=== PATIENT | female | born 1940 | race African-American/Black ===

== ENCOUNTER 2017-01-05 19:39 | Emergency (ER) | payer MEDICARE, MEDICAID ==
[~2017-01-05] VITALS: Ht 162.6 cm; Wt 94.8 kg
[~2017-01-05 19:39] MED LIST: ACET-704 PO; AMLO10TA4 PO; ATEN-57 PO; ATOR40TA PO; ATORVASTATIN CA80 MG PO; CALC200T23 PO; CARV3.122 PO; CHOL10003 PO; CLON1PAT11 TD; CYCL5TAB PO; DARB100D SQ; DICL100G7 TP; DOXA4TAB3 PO; ESOM40CA25 PO; FERR-26 PO; FEXO180T81 PO; FURO-68 PO; HYDR100T24 PO; LOSA100T6 PO; METO5TAB4 PO; MOME13HF IH; MONT10TA9 PO; NYST15OI TP; POLY17PO5 PO; PROAIR HFA8.5 GM IH; TIZA2TAB PO; TOLT2TAB2 PO
[2017-01-05 22:08] LABS: BASO % 1 % (0-3); EOS % 5 % (0-3); HEMATOCRIT 26.3 % (36.0-47.0); HEMOGLOBIN 8.3 g/dL (12.0-15.5); LYMPH # 1.8 x10^3/uL (1.0-4.8); LYMPH % 21 % (24-48); MEAN CORPUSCULAR HEMOGLOBIN 31 pg (25-35); MEAN CORPUSCULAR HGB CONC 32 g/dL (31-37); MEAN CORPUSCULAR VOLUME 99 fL (79-100); MONO % 6 % (0-9); NEUT % 67 % (31-73); PLATELET COUNT 244 x10^3/uL (140-400); RED BLOOD COUNT 2.67 x10^6/uL (3.50-5.40); RED CELL DISTRIBUTION WIDTH 14.5 % (11.5-14.5); WHITE BLOOD COUNT 8.4 x10^3/uL (4.0-11.0)
[2017-01-05 22:19] LABS: CREATININE 3.9 mg/dL (0.6-1.0); GFR 13.5; POTASSIUM 5.2 mmol/L (3.5-5.1)
[2017-01-05 22:42] VITALS: BP 177/69
[2017-01-05] MEDS ORDERED: HYDR-971 PO (23:00)
--- NOTE | 2017-01-05 23:00 | PHYS DOC ---
Past Medical History Past Medical History: Arthritis, High Cholesterol, Hypertension Additional Past Medical Histor: KIDNEY DISEASE Past Surgical History: Hysterectomy Alcohol Use: Occasionally Drug Use: None Adult General Chief Complaint Chief Complaint: LOWER EXTREMITY SWELLING [facility] HPI Patient is a 76 year old female who presents with primary complaint of bilateral knee swelling and pain. Patient states that she has history of arthritis. Patient has been having worsening pain over the past 2 weeks. Patient states that she has an appointment with her orthopedic doctor, Dr. Sanchez, a [facility] in 8 days but stated that due to worsening symptoms she could not wait until her appointment. Patient is currently taking Tylenol 3 for her symptoms with no relief. Patient rates her pain as 8 out of 10 when walking. Patient states that the symptoms improve with rest. Patient has history of chronic kidney disease and anemia. The patient stated that she wanted to make sure she was not having any problems from her condition that could be causing her swelling. Patient has not had any exertional dyspnea, orthopnea, or chest pain associated with her symptoms. Review of Systems Review of Systems Constitutional: Denies fever or chills [] Eyes: Denies change in visual acuity, redness, or eye pain [] HENT: Denies nasal congestion or sore throat [] Respiratory: Denies cough or shortness of breath [] Cardiovascular: No additional information not addressed in HPI [] GI: Denies abdominal pain, nausea, vomiting, bloody stools or diarrhea [] : Denies dysuria or hematuria [] Musculoskeletal: Knee swelling bilaterally [] Integument: Denies rash or skin lesions [] Neurologic: Denies headache, focal weakness or sensory changes [] Allergies Allergies Allergies Coded Allergies Type Severity Reaction Last Updated Verified carvedilol Allergy Intermediate 01/05/15 Yes NSAIDS (Non-Steroidal Anti-Inflamma Allergy Unknown 10/04/16 Yes Physical Exam Physical Exam Constitutional: Alert, afebrile, no acute distress. [] HENT: Normocephalic, atraumatic, bilateral external ears normal, oropharynx moist, no oral exudates, nose normal. [] Eyes: PERRLA, EOMI, conjunctiva normal, no discharge. [] Neck: Normal range of motion, no tenderness, supple, no stridor. [] Cardiovascular:Heart rate regular rhythm, no murmur [] Lungs & Thorax: Bilateral breath sounds clear to auscultation [] Abdomen: Bowel sounds normal, soft, no tenderness, no masses, no pulsatile masses. [] Skin: Warm, dry, no erythema, no rash. [] Back: No tenderness, no CVA tenderness. [] Extremities: Mild to moderate soft tissue swelling along inferior joint space of bilateral knees, trace pedal edema bilaterally, no cyanosis, no clubbing, ROM intact. [] Neurologic: Alert and oriented X 3, normal motor function, normal sensory function, no focal deficits noted. [] Current Patient Data Vital Signs Vital Signs Date Time Temp Pulse Resp B/P Pulse Ox O2 Delivery O2 Flow Rate FiO2 01/05/17 22:42 46 20 177/69 93 Room Air 01/05/17 20:13 98.3 98.3 Lab Values Laboratory Tests Test 01/05/17 20:30 White Blood Count 8.4x10^3/uL (4.0-11.0) Red Blood Count 2.67x10^6/uL (3.50-5.40) L Hemoglobin 8.3g/dL (12.0-15.5) L Hematocrit 26.3% (36.0-47.0) L Mean Corpuscular Volume 99fL (79-100) Mean Corpuscular Hemoglobin 31pg (25-35) Mean Corpuscular Hemoglobin Concent 32g/dL (31-37) Red Cell Distribution Width 14.5% (11.5-14.5) Platelet Count 244x10^3/uL (140-400) Neutrophils (%) (Auto) 67% (31-73) Lymphocytes (%) (Auto) 21% (24-48) L Monocytes (%) (Auto) 6% (0-9) Eosinophils (%) (Auto) 5% (0-3) H Basophils (%) (Auto) 1% (0-3) Neutrophils # (Auto) 5.6x10^3uL (1.8-7.7) Lymphocytes # (Auto) 1.8x10^3/uL (1.0-4.8) Monocytes # (Auto) 0.5x10^3/uL (0.0-1.1) Eosinophils # (Auto) 0.4x10^3/uL (0.0-0.7) Basophils # (Auto) 0.0x10^3/uL (0.0-0.2) Sodium Level 147mmol/L (136-145) H Potassium Level 5.2mmol/L (3.5-5.1) H Chloride Level 108mmol/L (98-107) H Carbon Dioxide Level 29mmol/L (21-32) Anion Gap 10 (6-14) Blood Urea Nitrogen 92mg/dL (7-20) H Creatinine 3.9mg/dL (0.6-1.0) H Estimated GFR (Cockcroft-Gault) 13.5 Glucose Level 107mg/dL (70-99) H Calcium Level 9.0mg/dL (8.5-10.1) Laboratory Tests 01/05/17 20:30 Laboratory Tests 01/05/17 20:30 EKG EKG Interpreted by me: Heart rate 47, sinus bradycardia, normal intervals, normal axis, no acute ST/T-wave abnormalities present Radiology/Procedures Radiology/Procedures Not performed [] Course & Med Decision Making Course & Med Decision Making Pertinent Labs and Imaging studies reviewed. (See chart for details) The patient's lab work shows her blood counts and her kidney function to be consistent with her previous testing. The patient's worsening swelling in her lower extremities secondary to inflammation from arthritis. The patient was provided with a prescription for [place] and advised to discontinue use of Tylenol 3 while taking [place]. Advised to keep appointment with Dr. Sanchez and also advised to follow-up with primary doctor in the next 2-3 days. Advised return emergency department for any worsening symptoms. Patient voiced understanding and in agreement with treatment plan. Dragon Disclaimer Dragon Disclaimer This electronic medical record was generated, in whole or in part, using a voice recognition dictation system. Departure Departure Impression: Primary Impression: Arthritis Additional Impressions: Chronic renal failure Chronic anemia Disposition: 01 HOME, SELF-CARE Condition: STABLE Referrals: LENNIE CLAYTON (PCP) Patient Instructions: Arthritis, Degenerative-Brief Additional Instructions: Follow-up with your primary doctor in the next 2-3 days. Return to the emergency department for any worsening symptoms. Scripts Hydrocodone/Apap 5-325 ([place] 5-325 Tablet)1 Each Tablet1 Tab PO Q6HRS PRN PAIN #20 TAB Prov:STACY RICHMOND MD 01/05/17 Problem Qualifiers Additional Impressions: Chronic renal failure Chronic kidney disease stage: stage 4 (severe) Qualified Code: N18.4 - Chronic kidney disease, stage 4 (severe) STACY RICHMOND MD Jan 05, 2017 23:00
--- NOTE | 2017-01-06 06:11 | EKG ---
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 POSSIBLY ABNORMAL ECG RI6.01 Compared to ECG 06/05/2016 19:35:33 No significant changes Electronically Signed On 01-22-2017 9:48:30 FINGERPRINT CLASSIFIER by Vince Cedillo
== END 2017-01-05 23:25 | disposition home or self-care (01) ==
LOC: ER 19:39
DX: M17.0 Bilateral primary osteoarthritis of knee (principal); I12.9 Hypertensive chronic kidney disease with stage 1 through stage 4 chronic kidney disease, or unspecified chronic kidney disease; N18.4 Chronic kidney disease, stage 4 (severe); D64.9 Anemia, unspecified; E78.00 Pure hypercholesterolemia, unspecified; Z88.6 Allergy status to analgesic agent; Z88.8 Allergy status to other drugs, medicaments and biological substances
CPT/HCPCS: 36415; 80048; 85027; 93005; 99285-25

== ENCOUNTER 2017-02-02 21:31 | Emergency (ER) | payer MEDICARE, MEDICAID ==
[~2017-02-02] VITALS: Ht 162.6 cm; Wt 94.8 kg
[~2017-02-02 21:31] MED LIST changes: +HYDR-971 PO
[2017-02-02 22:20] LABS: BASO # 0.1 x10^3/uL (0.0-0.2); BASO % 1 % (0-3); EOS % 3 % (0-3); HEMATOCRIT 27.1 % (36.0-47.0); HEMOGLOBIN 8.7 g/dL (12.0-15.5); LYMPH # 1.6 x10^3/uL (1.0-4.8); LYMPH % 19 % (24-48); MEAN CORPUSCULAR HEMOGLOBIN 31 pg (25-35); MEAN CORPUSCULAR HGB CONC 32 g/dL (31-37); MEAN CORPUSCULAR VOLUME 97 fL (79-100); MONO % 7 % (0-9); NEUT % 69 % (31-73); PLATELET COUNT 208 x10^3/uL (140-400); RED CELL DISTRIBUTION WIDTH 14.1 % (11.5-14.5); WHITE BLOOD COUNT 8.1 x10^3/uL (4.0-11.0)
--- NOTE | 2017-02-02 22:27 | RAD ---
PROCEDURE CT head without intravenous contrast. HISTORY Intermittent confusion. TECHNIQUE Axial images are obtained of the head from the skull base through the vertex without IV contrast Exposure: One or more of the following individualized dose reduction techniques were utilized for this examination: 1. Automated exposure control. 2. Adjustment of the mA and/or kV according to patient size. 3. Use of iterative reconstruction technique. COMPARISON CT head January 04, 2015. FINDINGS The ventricles are appropriate in size, shape, and location for the patient's age.No obvious intracranial mass, mass-effect, midline shift, hemorrhage or obvious acute infarction is identified.Basilar cisterns are patent. Small old right cerebellar lacunar infarction is unchanged. Bone windows demonstrate no acute calvarial abnormality.The visualized paranasal sinuses appear clear. IMPRESSION 1. No acute intracranial process. Please note that CT can be relatively insensitive to acute ischemic infarction for up to 24 hours after symptom onset. 2. 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 Electronically signed by: Seamus Monte MD (Feb 02, 2017 22:25:52)
--- NOTE | 2017-02-02 22:32 | PHYS DOC ---
Past Medical History Past Medical History: Arthritis, High Cholesterol, Hypertension Additional Past Medical Histor: KIDNEY DISEASE Past Surgical History: Hysterectomy Alcohol Use: Occasionally Drug Use: None Adult General Chief Complaint Chief Complaint: intermittent confusion with severe hypertension. HPI HPI 77-year-old female presenting to the emergency department today accompanied with her daughter. She reports intermittent confusion that occurred around 1600 today. Here the patient is not confused she is oriented 4. She reports her being more forgetful as well. She denies weakness chest pain shortness of breath abdominal pain nausea vomiting. Location brain duration intermittent. No alleviating factors present. The daughter denies the patient having asymmetric face, slurred speech, unilateral focal motor deficits. Review of systems is negative for chest pain shortness of breath nausea vomiting fevers or chills. All other review of systems is negative unless otherwise noted in history of present illness. Review of Systems Review of Systems SEE ABOVE. Current Medications Current Medications Current Medications Medications (Trade) Dose Ordered Sig/Jerson Start Time Stop Time Status Last Admin Dose Admin Fentanyl Citrate (Fentanyl 2ml Vial) 50 mcg PRN Q30MIN PRN 02/03/17 00:15 02/03/17 00:27 50 MCG Hydralazine HCl (Apresoline) 10 mg PRN Q30MIN PRN 02/02/17 23:30 02/03/17 00:25 10 MG Ondansetron HCl (Zofran) 4 mg PRN Q30MIN PRN 02/03/17 00:15 Allergies Allergies Allergies Coded Allergies Type Severity Reaction Last Updated Verified NSAIDS (Non-Steroidal Anti-Inflamma Allergy Intermediate 02/02/17 Yes carvedilol Allergy Intermediate 01/05/15 Yes Physical Exam Physical Exam Constitutional: Well developed, well nourished, no acute distress, non-toxic appearance. HENT: Normocephalic, atraumatic, bilateral external ears normal, oropharynx moist, no oral exudates, nose normal. [] Eyes: PERRLA, EOMI, conjunctiva normal, no discharge. Neck: Normal range of motion, no tenderness, supple, no stridor. [] Cardiovascular:Heart rate regular rhythm, no murmur Lungs & Thorax: Bilateral breath sounds clear to auscultation [] Abdomen: Bowel sounds normal, soft, no tenderness, no masses, no pulsatile masses. Skin: Warm, dry, no erythema, no rash. [] Back: No tenderness, no CVA tenderness. Extremities: No tenderness, no cyanosis, no clubbing, ROM intact, no edema. [] Neurologic: Mental status: Awake oriented and alert x3 Cranial nerves: Extraocular movements intact, eyebrows mitzy bilaterally smile symmetric, uvula elevation, shoulder shrug intact, tongue protrusion normal Sensation: equal and normal in all extremities Strength: 5/5 in upper and lower extremities bilaterally Psychologic: Affect normal, judgement normal, mood normal. [] Current Patient Data Vital Signs Vital Signs Date Time Temp Pulse Resp B/P Pulse Ox O2 Delivery O2 Flow Rate FiO2 02/03/17 00:59 60 18 170/74 100 Room Air 02/02/17 21:47 98.8 98.8 Lab Values Laboratory Tests Test 02/02/17 21:56 02/02/17 22:10 02/02/17 22:45 02/03/17 01:40 Glucose (Fingerstick) 97mg/dL (70-99) White Blood Count 8.1x10^3/uL (4.0-11.0) Red Blood Count 2.80x10^6/uL (3.50-5.40) L Hemoglobin 8.7g/dL (12.0-15.5) L Hematocrit 27.1% (36.0-47.0) L Mean Corpuscular Volume 97fL (79-100) Mean Corpuscular Hemoglobin 31pg (25-35) Mean Corpuscular Hemoglobin Concent 32g/dL (31-37) Red Cell Distribution Width 14.1% (11.5-14.5) Platelet Count 208x10^3/uL (140-400) Neutrophils (%) (Auto) 69% (31-73) Lymphocytes (%) (Auto) 19% (24-48) L Monocytes (%) (Auto) 7% (0-9) Eosinophils (%) (Auto) 3% (0-3) Basophils (%) (Auto) 1% (0-3) Neutrophils # (Auto) 5.6x10^3uL (1.8-7.7) Lymphocytes # (Auto) 1.6x10^3/uL (1.0-4.8) Monocytes # (Auto) 0.6x10^3/uL (0.0-1.1) Eosinophils # (Auto) 0.3x10^3/uL (0.0-0.7) Basophils # (Auto) 0.1x10^3/uL (0.0-0.2) Sodium Level 146mmol/L (136-145) H Potassium Level 4.7mmol/L (3.5-5.1) Chloride Level 110mmol/L (98-107) H Carbon Dioxide Level 26mmol/L (21-32) Anion Gap 10 (6-14) Blood Urea Nitrogen 55mg/dL (7-20) H Creatinine 3.2mg/dL (0.6-1.0) H Estimated GFR (Cockcroft-Gault) 16.9 Glucose Level 103mg/dL (70-99) H Calcium Level 9.2mg/dL (8.5-10.1) Total Bilirubin 0.3mg/dL (0.2-1.0) Direct Bilirubin 0.1mg/dL (0.0-0.2) Aspartate Amino Transferase (AST) 21U/L (15-37) Alanine Aminotransferase (ALT) 14U/L (14-59) Alkaline Phosphatase 78U/L (46-116) Troponin I Quantitative 0.062ng/mL (0.000-0.055) 0.041ng/mL (0.000-0.055) OE-Gnk-A-Type Natriuretic Peptide 9944pg/mL (0-449) H Total Protein 6.6g/dL (6.4-8.2) Albumin 3.1g/dL (3.4-5.0) L Lipase 75U/L (73-393) Urine Collection Type Unknown Urine Color Yellow Urine Clarity Clear Urine pH 6.0 Urine Specific [place] 1.015 Urine Protein 100mg/dL (NEG-TRACE) Urine Glucose (UA) Negativemg/dL (NEG) Urine Ketones (Stick) Negativemg/dL (NEG) Urine Blood Negative (NEG) Urine Nitrite Negative (NEG) Urine Bilirubin Negative (NEG) Urine Urobilinogen Dipstick 1.0mg/dL (0.2 mg/dL) Urine Leukocyte Esterase Trace (NEG) Urine RBC 0/HPF (0-2) Urine WBC 5-10/HPF (0-4) Urine Squamous Epithelial Cells Mod/LPF Urine Bacteria Many/HPF (0-FEW) Laboratory Tests 02/02/17 22:10 Laboratory Tests 02/02/17 22:10 EKG EKG [] Radiology/Procedures Radiology/Procedures [] Course & Med Decision Making Course & Med Decision Making Pertinent Labs and Imaging studies reviewed. (See chart for details) [] 77-year-old female presenting to the emergency department with intermittent confusion. Vital signs showed significant hypertension. Otherwise unremarkable. Pertinent physical exam findings showed a nonfocal normal neurologic exam. Oriented 4. The patient was provided with IV blood pressure medications in the emergency department. Blood testing obtained. EKG not consistent with ischemia. Head CT shows old cerebellar lacunar infarct. Chest x-ray shows cardiomegaly without obvious infiltrate or pneumothorax similar to previous on January 04, 2015. IV hydralazine used in the emergency department to bring the patient's blood pressure down which was successful. CBC shows mild to moderate anemia. Patient denies dark stools. Urinalysis shows bacteria with squamous epithelial cells negative nitrite and esterase trace. We will give the patient antibiotics for this equivocal urinalysis. Chemistry panel otherwise shows chronic kidney disease. ProBNP elevated along with initial troponin just above the reference range of normal with increased creatinine and decreased GFR. Repeat testing performed after hypertension was controlled shows normal troponin. Patient is feeling much better and subsequent discharged home to follow-up with her primary care physician in our cardiology team in the outpatient setting over the next 2-3 days. Patient and family comfortable with plan. Dragon Disclaimer Dragon Disclaimer This electronic medical record was generated, in whole or in part, using a voice recognition dictation system. Departure Departure Impression: Primary Impression: Intermittent confusion Additional Impression: Hypertensive emergency Disposition: 01 HOME, SELF-CARE Condition: IMPROVED Referrals: LENNIE CLAYTON (PCP) Patient Instructions: Hypertension Additional Instructions: Thank you for allowing us to participate in your care today. Followup with your primary care physician in 3 days for chronic management of your hypertension. I also recommend he follow-up with our cardiology team in 3 days for outpatient evaluation. If you do not have a primary care provider you can ask for a list of our primary care providers. Return to the emergency department you have any new or concerning findings. This should be evaluated by the primary care physician and any necessary consulting services for continued management within a few days after discharge. Return to emergency room if you have any new or concerning symptoms including but not limited to fever, chills, nausea, vomiting, intractable pain, any new rashes, chest pain, shortness of air, uncontrolled bleeding, difficulty breathing, and/or vision loss. Problem Qualifiers TASHA GODWIN MD Feb 02, 2017 22:32
[2017-02-02 22:33] LABS: CALCIUM 9.2 mg/dL (8.5-10.1); CREATININE 3.2 mg/dL (0.6-1.0); GFR 16.9; POTASSIUM 4.7 mmol/L (3.5-5.1)
[2017-02-02 22:39] LABS: ALBUMIN 3.1 g/dL (3.4-5.0); DIRECT BILIRUBIN 0.1 mg/dL (0.0-0.2); TOTAL BILIRUBIN 0.3 mg/dL (0.2-1.0); TOTAL PROTEIN 6.6 g/dL (6.4-8.2)
[2017-02-02 22:53] LABS: BILIRUBIN,URINE NEGATIVE (NEG); GLUCOSE,URINE NEGATIVE (NEG); NITRITE,URINE NEGATIVE (NEG); PROTEIN,URINE 100 mg/dL (NEG-TRACE)
[2017-02-02] MEDS ORDERED: hydrALAZINE 20 MG/ML VIAL. IVP ONE ×2 (23:00→23:30)
[2017-02-02 23:01] LABS: BACTERIA,URINE MANY /HPF (0-FEW); RBC,URINE 0 /HPF (0-2); SQUAMOUS EPITHELIAL CELL,UR MOD /LPF
[2017-02-02] MEDS ORDERED: hydrALAZINE 20 MG/ML VIAL. IVP PRN (23:30)
[2017-02-03] MEDS ORDERED: ONDANSETRON PF 4 MG/2 ML VIAL. IV PRN (00:15)
[2017-02-03] MEDS ORDERED: FENTANYL PF 100 MCG/2 ML VIAL. IV PRN (00:15)
[2017-02-03 00:59] VITALS: BP 170/74
[2017-02-03] MEDS ORDERED: NITR100C62 PO (02:48)
--- NOTE | 2017-02-03 06:51 | EKG ---
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
--- NOTE | 2017-02-03 08:04 | RAD ---
Portable chest, 02/02/2017: History: Altered mental status Comparison is made to a study from 01/04/2015. The heart is moderately enlarged. There is tortuosity and calcific plaquing of the thoracic aorta. The pulmonary vascularity is normal. There is minimal linear atelectasis or scarring laterally in the left midlung. The right lung is clear. There is no evidence of pleural fluid. Degenerative changes are present in the spine and at both shoulders. IMPRESSION: 1. Cardiomegaly and aortic atherosclerosis. 2. Mild linear atelectasis and/or scarring on the left.
== END 2017-02-03 02:58 | disposition home or self-care (01) ==
LOC: ER 21:31
DX: R41.0 Disorientation, unspecified (principal); I10 Essential (primary) hypertension; M19.90 Unspecified osteoarthritis, unspecified site; E78.00 Pure hypercholesterolemia, unspecified; Z90.710 Acquired absence of both cervix and uterus; Z86.73 Personal history of transient ischemic attack (TIA), and cerebral infarction without residual deficits; Z88.8 Allergy status to other drugs, medicaments and biological substances
CPT/HCPCS: 36415; 70450; 71010; 80048; 80076; 81001; 82947; 83690; 83880; 84484; 85027; 87086; 93005; 96374; 96375; 96376; 99285; J0360; J3010

== ENCOUNTER 2017-09-05 15:48 | Inpatient (IN) | payer MEDICARE, MEDICAID ==
[~2017-09-05] VITALS: Ht 162.6 cm; Wt 92.8 kg
[~2017-09-05 15:48] MED LIST changes: +DICL100G18 TP; -DICL100G7 TP; +NITR100C62 PO; +POLY17PO29 PO; -POLY17PO5 PO
--- NOTE | 2017-09-05 16:32 | PHYS DOC ---
Past Medical History Past Medical History: Arthritis, High Cholesterol, Hypertension, Renal Failure Additional Past Medical Histor: KIDNEY DISEASE Past Surgical History: Hysterectomy Additional Past Surgical Histo: r chest dialysis cath Alcohol Use: Occasionally Drug Use: None Adult General Chief Complaint Chief Complaint: DIARRHEA HPI HPI Patient is a 77 year old -[place] female who presents with diarrhea and generalized weakness. She states at 2:00 today she was known dialysis and then stopped until agrees the bathroom and she had massive amount of stool. She came back and was unable to finish dialysis. She states she feels generalized weakness. She denies any chest pain shortness of breath or abdominal pain. She states she felt fine yesterday. Review of Systems Review of Systems Constitutional: Denies fever or chills [] Eyes: Denies change in visual acuity, redness, or eye pain [] HENT: Denies nasal congestion or sore throat [] Respiratory: Denies cough or shortness of breath [] Cardiovascular: No additional information not addressed in HPI [] GI: Denies abdominal pain, nausea, vomiting, positive for bloody stools and diarrhea [] : Denies dysuria or hematuria [] Musculoskeletal: Denies back pain or joint pain [] Integument: Denies rash or skin lesions [] Neurologic: Denies headache, focal weakness or sensory changes [] Endocrine: Denies polyuria or polydipsia [] Current Medications Current Medications Current Medications Medications (Trade) Dose Ordered Sig/[facility] Start Time Stop Time Status Last Admin Dose Admin Ondansetron HCl (Zofran) 4 mg PRN Q8HRS PRN 09/05/17 18:45 09/06/17 18:44 Allergies Allergies Allergies Coded Allergies Type Severity Reaction Last Updated Verified NSAIDS (Non-Steroidal Anti-Inflamma Allergy Intermediate 02/02/17 Yes carvedilol Allergy Intermediate 01/05/15 Yes Physical Exam Physical Exam Constitutional: Well developed, well nourished, no acute distress, non-toxic appearance. [] HENT: Normocephalic, atraumatic, bilateral external ears normal, oropharynx moist, no oral exudates, nose normal. [] Eyes: PERRLA, EOMI, conjunctiva normal, no discharge. [] Neck: Normal range of motion, no tenderness, supple, no stridor. [] Cardiovascular:Heart rate regular rhythm, no murmur [] Lungs & Thorax: Bilateral breath sounds clear to auscultation [] Abdomen: Bowel sounds normal, soft, no tenderness, no masses, no pulsatile masses. [] Skin: Warm, dry, no erythema, no rash. [] Back: No tenderness, no CVA tenderness. [] Extremities: No tenderness, no cyanosis, no clubbing, ROM intact, no edema. [] Neurologic: Alert and oriented X 3, normal motor function, normal sensory function, no focal deficits noted. [] Psychologic: Affect normal, judgement normal, mood normal. [] Current Patient Data Vital Signs Vital Signs Date Time Temp Pulse Resp B/P (MAP) Pulse Ox O2 Delivery O2 Flow Rate FiO2 09/05/17 18:30 72 20 135/63 (87) 95 Room Air 09/05/17 16:15 97.5 97.5 Lab Values Laboratory Tests Test 09/05/17 16:30 09/05/17 16:50 09/05/17 17:30 Troponin I Quantitative < 0.017 ng/mL (0.000-0.055) Stool Occult Blood Positive (NEG) White Blood Count 19.0 x10^3/uL (4.0-11.0) H Red Blood Count 4.45 x10^6/uL (3.50-5.40) Hemoglobin 12.3 g/dL (12.0-15.5) Hematocrit 39.1 % (36.0-47.0) Mean Corpuscular Volume 88 fL (79-100) Mean Corpuscular Hemoglobin 28 pg (25-35) Mean Corpuscular Hemoglobin Concent 32 g/dL (31-37) Red Cell Distribution Width 26.4 % (11.5-14.5) H Platelet Count 259 x10^3/uL (140-400) Neutrophils (%) (Auto) 83 % (31-73) H Lymphocytes (%) (Auto) 7 % (24-48) L Monocytes (%) (Auto) 8 % (0-9) Eosinophils (%) (Auto) 2 % (0-3) Basophils (%) (Auto) 1 % (0-3) Neutrophils # (Auto) 15.8 x10^3uL (1.8-7.7) H Lymphocytes # (Auto) 1.3 x10^3/uL (1.0-4.8) Monocytes # (Auto) 1.5 x10^3/uL (0.0-1.1) H Eosinophils # (Auto) 0.4 x10^3/uL (0.0-0.7) Basophils # (Auto) 0.1 x10^3/uL (0.0-0.2) Segmented Neutrophils % 72 % (35-66) H Band Neutrophils % 6 % (0-9) Lymphocytes % 10 % (24-48) L Monocytes % 7 % (0-10) Eosinophils % 4 % (0-5) Basophils % 1 % (0-3) Toxic Granulation Mod Toxic Vacuolation Slight Platelet Estimate Adequate (ADEQUATE) Polychromasia Slight Anisocytosis Mod Prothrombin Time 44.2 SEC (11.7-14.0) H Prothrombin Time INR 5.1 (0.8-1.1) *H PTT 69 SEC (24-38) H Sodium Level 140 mmol/L (136-145) Potassium Level 3.4 mmol/L (3.5-5.1) L Chloride Level 98 mmol/L (98-107) Carbon Dioxide Level 30 mmol/L (21-32) Anion Gap 12 (6-14) Blood Urea Nitrogen 35 mg/dL (7-20) H Creatinine 6.4 mg/dL (0.6-1.0) H Estimated GFR (Cockcroft-Gault) 7.6 Glucose Level 112 mg/dL (70-99) H Calcium Level 9.8 mg/dL (8.5-10.1) Total Bilirubin 0.3 mg/dL (0.2-1.0) Direct Bilirubin 0.1 mg/dL (0.0-0.2) Aspartate Amino Transferase (AST) 29 U/L (15-37) Alanine Aminotransferase (ALT) < 6 U/L (14-59) L Alkaline Phosphatase 199 U/L (46-116) H Creatine Kinase 92 U/L (26-192) Creatine Kinase MB (Mass) 0.7 ng/mL (0.0-3.6) Creatine Kinase MB Relative Index 0.8 % (0-4) Total Protein 7.8 g/dL (6.4-8.2) Albumin 3.3 g/dL (3.4-5.0) L Laboratory Tests 09/05/17 17:30 Laboratory Tests 10/17/17 17:30 EKG EKG [] Radiology/Procedures Radiology/Procedures [] Impressions: Bloody diarrhea Leukocytosis End-stage renal disease Course & Med Decision Making Course & Med Decision Making Pertinent Labs and Imaging studies reviewed. (See chart for details) Vitals are stable, hemoglobin is 12. Her INR is 5 but she does not have any active bleeding at this time. She's being admitted to Dr. Cosby who once a abdomen pelvis oral contrast CT scan that she is complaining of some intermittent right upper quadrant pain on the hospitalist exam. She is in stable condition this time being admitted with nephrology consultation for end- stage renal disease. Dragon Disclaimer Dragon Disclaimer This electronic medical record was generated, in whole or in part, using a voice recognition dictation system. Departure Departure Impression: Primary Impression: Bloody diarrhea Disposition: ADMITTED INPATIENT Admitting Physician: Juana Cosby Condition: STABLE Referrals: LENNIE CLAYTON (PCP) JOSE ANGEL ZAMORA MD Sep 05, 2017 16:31
[2017-09-05 17:15] LABS: NEG OBC FOB NEG; POS OBC FOB POS
[2017-09-05 17:43] LABS: BASO # 0.1 x10^3/uL (0.0-0.2); BASO % 1 % (0-3); EOS % 2 % (0-3); HEMATOCRIT 39.1 % (36.0-47.0); HEMOGLOBIN 12.3 g/dL (12.0-15.5); LYMPH # 1.3 x10^3/uL (1.0-4.8); LYMPH % 7 % (24-48); MEAN CORPUSCULAR HEMOGLOBIN 28 pg (25-35); MEAN CORPUSCULAR HGB CONC 32 g/dL (31-37); MEAN CORPUSCULAR VOLUME 88 fL (79-100); MONO % 8 % (0-9); NEUT % 83 % (31-73); PLATELET COUNT 259 x10^3/uL (140-400); RED BLOOD COUNT 4.45 x10^6/uL (3.50-5.40); RED CELL DISTRIBUTION WIDTH 26.4 % (11.5-14.5)
[2017-09-05 17:53] LABS: PROTHROMBIN TIME PATIENT 44.2 SEC (11.7-14.0)
[2017-09-05 17:59] LABS: INR 5.1 (0.8-1.1)
[2017-09-05 18:03] LABS: % BASOS 1 % (0-3); % EOS 4 % (0-5)
[2017-09-05 18:05] LABS: ANION GAP 12 (6-14); BLOOD UREA NITROGEN 35 mg/dL (7-20); CALCIUM 9.8 mg/dL (8.5-10.1); CARBON DIOXIDE 30 mmol/L (21-32); CHLORIDE 98 mmol/L (98-107); CREATININE 6.4 mg/dL (0.6-1.0); GFR 7.6; GLUCOSE 112 mg/dL (70-99); POTASSIUM 3.4 mmol/L (3.5-5.1); SODIUM 140 mmol/L (136-145)
[2017-09-05 18:06] LABS: PLT ESTIMATE ADEQUATE (ADEQUATE)
[2017-09-05 18:07] LABS: ANISOCYTOSIS MOD; POLYCHROMASIA SLIGHT; TOXIC GRANULATION MOD; TOXIC VACUOLATION SLIGHT
[2017-09-05 18:11] LABS: ALK PHOS 199 U/L (46-116); AST (SGOT) 29 U/L (15-37); DIRECT BILIRUBIN 0.1 mg/dL (0.0-0.2); TOTAL BILIRUBIN 0.3 mg/dL (0.2-1.0); TOTAL PROTEIN 7.8 g/dL (6.4-8.2)
--- NOTE | 2017-09-05 18:14 | EKG ---
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
[2017-09-05 18:19] LABS: CKMB MASS 0.7 ng/mL (0.0-3.6)
[2017-09-05 18:21] LABS: ALBUMIN 3.3 g/dL (3.4-5.0)
[2017-09-05 18:27] LABS: ALT (SGPT) < 6 U/L (14-59)
[2017-09-05] MEDS ORDERED: ONDANSETRON PF 4 MG/2 ML VIAL. IV PRN (18:45)
[2017-09-05] MEDS ORDERED: hydrALAZINE 20 MG/ML VIAL. IVP PRN (19:15)
[2017-09-05] MEDS ORDERED: NON FORMULARY ITEM (Albuterol Sulfate (Proair Hfa Inhaler) 2 PUFF) IH SCH (19:15)
[2017-09-05] MEDS ORDERED: ACETAMINOPHEN/CODEINE 300/30MG TABLET. PO PRN (19:15)
[2017-09-05] MEDS ORDERED: diphenhydrAMINE HCL 25 MG CAPSULE PO PRN (19:15)
[2017-09-05] MEDS ORDERED: HYDROcodone/APAP 5/325MG 1 TAB TABLET PO PRN (19:15)
[2017-09-05] MEDS ORDERED: NON FORMULARY ITEM (Tizanidine Hcl 2 MG) PO PRN (19:15)
--- NOTE | 2017-09-05 19:27 | PDOC1 ---
History and Physical Date of Admission Date of Admission DATE: 09/05/17 TIME: 19:19 Identification/Chief Complaint Chief Complaint weak today and bRBPR Problems: Source Source: Caregiver, Chart review, Patient History of Present Illness History of Present Illness 77 y.o AA female who is relatively new HD, started few mos ago, has left AV fistula that has not mature yet so she is getting HD thru RT subclavian cath, and is on WARFARIN for it bec has had clots in that catheter in the past, admitted for some mild BRBPR, hgb 12, VS stable with INR of 5, NO other bleeding sites, ESRD, HTN, dyslipidemia, Asthma, DM are other co morbids. Dw sister at bedside, will hold warf, get vitamin K, have gI see LAst c scope 2 yrs ago, routine? was told ok. PCP in [facility] COmplains of some RT sided flank abd pain, seemed like MSK to me by nature, but loose stools with WBC 19 hence c diff also being ruled out, Family who is at bedside and works in [employer] claims stool does not smell like c diff. Past Medical History Cardiovascular: HTN, Hyperlipidemia Pulmonary: Asthma, Bronchitis GI: GERD Heme/Onc: Anemia NOS Hepatobiliary: No pertinent hx Psych: No pertinent hx Musculoskeletal: low back pain Rheumatologic: No pertinent hx Infectious disease: No pertinent hx ENT: No pertinent hx Endocrine: Diabetes Past Surgical History Past Surgical History: Other (HD cath RT subclavian, AV fistula left arm) Family History Family History: Hypertension Social History Smoke: No ALCOHOL: none Drugs: None Current Problem List Problem List Problems Medical Problems: (1) Bloody diarrhea Status: Acute Problems: Current Medications Current Medications Current Medications Ondansetron HCl (Zofran) 4 mg PRN Q8HRS PRN IV NAUSEA/VOMITING; Start at 18:45; Stop 09/06/17 at 18:44 Phytonadione (Vitamin K Ampule) 5 mg 1X ONCE SQ ; Start 09/05/17 at 19:15; Stop 09/05/17 at 19:16; Status UNV Acetaminophen/ Codeine Phosphate (Tylenol #3) 1 tab PRN Q8HRS PRN PO PAIN; Start 09/05/17 at 19:15; Status UNV Amlodipine Besylate (Norvasc) 10 mg DAILY PO ; Start 09/06/17 at 09:00; Status UNV Atenolol (Tenormin) 50 mg DAILY PO ; Start 09/06/17 at 09:00; Status UNV Atorvastatin Calcium (Lipitor) 40 mg QHS PO ; Start 09/05/17 at 21:00; Status UNV Calcium Carbonate/ Glycine (Tums) 200 mg BID PO ; Start 09/05/17 at 21:00; Status UNV Vitamin D (Vitamin D3) 2,000 unit DAILY PO ; Start 09/06/17 at 09:00; Status UNV Clonidine HCl (Catapres Tts-3) 1 patch WEEKLY TD ; Start 09/12/17 at 09:00; Status UNV Darbepoetin Umang (Aranesp) 100 mcg WEEKLYHS SQ ; Start 09/05/17 at 21:00; Status UNV Diclofenac Sodium (Voltaren) 4 travis QID TP ; Start 09/05/17 at 21:00; Status UNV Doxazosin Mesylate (Cardura) 4 mg DAILY PO ; Start 09/06/17 at 09:00; Status UNV Ferrous Sulfate (Feosol) 325 mg DAILY PO ; Start 09/06/17 at 09:00; Status UNV Acetaminophen/ Hydrocodone Bitart (Lortab 5/325) 1 tab Q6HRS PRN PO PAIN; Start 09/05/17 at 19:15; Status UNV Montelukast Sodium (Singulair) 10 mg DAILY PO ; Start 09/06/17 at 09:00; Status UNV Polyethylene Glycol (miraLAX PACKET) 17 gm DAILY PO ; Start 09/06/17 at 09:00; Status UNV Non-Formulary Medication 2 puff PRN Q4-6HRS IH ; Start 09/05/17 at 19:15; Status UNV Non-Formulary Medication 1 tab TID PO ; Start 09/05/17 at 21:00; Status UNV Non-Formulary Medication 40 mg DAILYAC PO ; Start 09/06/17 at 07:30; Status UNV Non-Formulary Medication 180 mg DAILY PO ; Start 09/06/17 at 09:00; Status UNV Non-Formulary Medication 1 tab TID PO ; Start 09/05/17 at 21:00; Status UNV Non-Formulary Medication 5 mg DAILY PO ; Start 09/06/17 at 09:00; Status UNV Non-Formulary Medication 2 puff BID IH ; Start 09/05/17 at 21:00; Status UNV Non-Formulary Medication 1 travis TID TP ; Start 09/05/17 at 21:00; Status UNV Non-Formulary Medication 2 mg TID PRN PO MUSCLE SPASMS; Start 09/05/17 at 19: 15; Status UNV Non-Formulary Medication 4 mg BID PO ; Start 09/05/17 at 21:00; Status UNV Hydralazine HCl (Apresoline Inj) 10 mg PRN Q4HRS PRN IVP ELEVATED BP, SEE COMMENTS; Start 09/05/17 at 19:15; Status UNV Diphenhydramine HCl (Benadryl) 25 mg PRN QHS PRN PO INSOMNIA; Start 09/05/17 at 19:15; Status UNV Iohexol (Omnipaque 240 Mg/ml) 30 ml 1X ONCE PO ; Start 09/05/17 at 19:30; Stop 09/05/17 at 19:31; Status UNV Active Scripts Active Macrobid 100 Mg Capsule (Nitrofurantoin Monohyd/M-Cryst) 100 Mg Capsule 1 Cap PO BID Leonard 5-325 Tablet (Acetaminophen/Hydrocodone Bitart) 1 Each Tablet 1 Tab PO Q6HRS PRN Nystatin 15 Gm Oint...g. 1 Travis TP TID Aranesp Syringe (Darbepoetin Umang In Polysorbat) 100 Mcg/0.5 Ml Disp.syrin 100 Mcg SQ WEEKLYHS Metolazone 5 Mg Tablet 5 Mg PO DAILY Tenormin (Atenolol) 50 Mg Tablet 50 Mg PO DAILY Norvasc (Amlodipine Besylate) 10 Mg Tablet 10 Mg PO DAILY Reported Montelukast Sodium Tablet (Montelukast Sodium) 10 Mg Tablet 1 Tab PO DAILY Tizanidine Hcl 2 Mg Tablet 2 Mg PO TID PRN Verena Allergy (Fexofenadine Hcl) 180 Mg Tablet 180 Mg PO DAILY Ferrous Sulfate 325 Mg Tablet 325 Mg PO DAILY Catapres-Tts 3 (Clonidine) 1 Each Patch.tdwk 1 Each TD WEEKLY Vitamin D3 (Cholecalciferol (Vitamin D3)) 1,000 Unit Tablet 2,000 Unit PO DAILY Detrol (Tolterodine Tartrate) 2 Mg Tablet 4 Mg PO BID Proair Hfa Inhaler (Albuterol Sulfate) 8.5 Gm Hfa.aer.ad 2 Puff IH PRN Q4-6HRS Dulera 200 Mcg/5 Mcg Inhaler (Mometasone/Formoterol) 13 Gm Hfa.aer.ad 2 Puff IH BID Calcium Carbonate 200 Mg Tab.chew 200 Mg PO BID Esomeprazole Capsule (Esomeprazole Strontium) 40 Mg Capsule.dr 40 Mg PO DAILYAC Doxazosin Mesylate 4 Mg Tablet 1 Tab PO DAILY Miralax (Polyethylene Glycol 3350) 17 Gm Powd.pack 1 Packet PO DAILY Voltaren (Diclofenac Sodium) 100 Gm Gel..gram. 4 Gm TP QID Lipitor (Atorvastatin Calcium) 40 Mg Tablet 1 Tab PO QHS Tylenol With Codeine #3 Tablet (Acetaminophen/Codeine Phosphate) 1 Each Tablet 1 Each PO PRN Q8HRS PRN Cyclobenzaprine Hcl 5 Mg Tablet 1 Tab PO TID Hydralazine Hcl 100 Mg Tablet 1 Tab PO TID Allergies Allergies: Coded Allergies: NSAIDS (Non-Steroidal Anti-Inflamma (Verified Allergy, Intermediate, ) carvedilol (Verified Allergy, Intermediate, 01/05/15) ROS General: No: Chills, Night Sweats, Fatigue, Malaise, Appetite, Other PSYCHOLOGICAL ROS: No: Anxiety, Behavioral Disorder, Concentration difficultie , Decreased libido, Depression, Disorientation, Hallucinations, Hostility, Irritablity, Memory difficulties, Mood Swings, Obsessive thoughts, Physical abuse, Sexual abuse, Sleep disturbances, Suicidal ideation, Other Eyes: No Blurry vision, No Decreased vision, No Double vision, No Dry eyes, No Excessive tearing, No Eye Pain, No Itchy Eyes, No Loss of vision, No Photophobia , No Scotomata, No Uses contacts, No Uses glasses, No Other HEENT: No: Heacaches, Visual Changes, Hearing change, Nasal congestion, Nasal discharge, Oral lesions, Sinus pain, Sore Throat, Epistaxis, Sneezing, Snoring, Tinnitus, Vertigo, Vocal changes, Other ALLERGY AND IMMUNOLOGY: No: Hives, Insect Bite Sensitivity, Itchy/Watery Eyes, Nasal Congestion, Post Nasal Drip, Seasonal Allergies, Other Hematological and Lymphatic: No: Bleeding Problems, Blood Clots, Blood Transfusions, Brusing, Night Sweats, Pallor, Swollen Lymph Nodes, Other ENDOCRINE: No: Breast Changes, Galactorrhea, Hair Pattern Changes, Hot Flashes , Malaise/lethargy, Mood Swings, Palpitations, Polydipsia/polyuria, Skin Changes , Temperature Intolerance, Unexpected Weight Changes, Other Breast: No New/Changing Breast Lumps, No Nipple changes, No Nipple discharge, No Other Cardiovascular: yes Chest Pain Gastrointestinal: Yes Abdominal Pain, Yes Hematochezia Genitourinary: No Dysuria, No Frequency, No Incontinence, No Hematuria, No Retention, No Discharge, No Urgency, No Pain, No Flank Pain, No Other, No , No , No , No , No , No , No Neurological: No Behavorial Changes, No Bowel/Bladder ControlChng, No Confusion , No Dizziness, No Gait Disturbance, No Headaches, No Impaired Coord/balance, No Memory Loss, No Numbness/Tingling, No Seizures, No Speech Problems, No Tremors, No Visual Changes, No Weakness, No Other Physical Exam General: Alert, Oriented X3, Cooperative, No acute distress HEENT: Atraumatic, PERRLA, EOMI Lungs: Clear to auscultation, Normal air movement Heart: S1S2, RRR, no thrills, no rubs, no gallops, no murmurs Cardiovascular: S1, S2 Breasts: Normal, Rt breast nml w/o mass, Lt breast nml w/o mass, Nipples normal Abdomen: Normal bowel sounds, Soft, No tenderness, No hepatosplenomegaly, No masses PELVIC: Nml ext genitalia Extremities: No clubbing, No cyanosis, No edema, Normal pulses, No tenderness/ swelling Skin: No rashes, No breakdown, No significant lesion Neuro: Normal gait, Normal speech, Strength at 5/5 X4 ext, Normal tone, Sensation intact, Cranial nerves 3-12 NL, Reflexes 2+ Psych/Mental Status: Mental status NL, Mood NL Vitals Vitals Vital Signs Date Time Temp Pulse Resp B/P (MAP) Pulse Ox O2 Delivery O2 Flow Rate FiO2 09/05/17 18:30 72 20 135/63 (87) 95 Room Air 09/05/17 16:15 97.5 97.5 Labs Labs Laboratory Tests Test 09/05/17 16:30 09/05/17 16:50 09/05/17 17:30 Troponin I Quantitative < 0.017 ng/mL (0.000-0.055) Stool Occult Blood Positive (NEG) White Blood Count 19.0 x10^3/uL (4.0-11.0) Red Blood Count 4.45 x10^6/uL (3.50-5.40) Hemoglobin 12.3 g/dL (12.0-15.5) Hematocrit 39.1 % (36.0-47.0) Mean Corpuscular Volume 88 fL (79-100) Mean Corpuscular Hemoglobin 28 pg (25-35) Mean Corpuscular Hemoglobin Concent 32 g/dL (31-37) Red Cell Distribution Width 26.4 % (11.5-14.5) Platelet Count 259 x10^3/uL (140-400) Neutrophils (%) (Auto) 83 % (31-73) Lymphocytes (%) (Auto) 7 % (24-48) Monocytes (%) (Auto) 8 % (0-9) Eosinophils (%) (Auto) 2 % (0-3) Basophils (%) (Auto) 1 % (0-3) Neutrophils # (Auto) 15.8 x10^3uL (1.8-7.7) Lymphocytes # (Auto) 1.3 x10^3/uL (1.0-4.8) Monocytes # (Auto) 1.5 x10^3/uL (0.0-1.1) Eosinophils # (Auto) 0.4 x10^3/uL (0.0-0.7) Basophils # (Auto) 0.1 x10^3/uL (0.0-0.2) Segmented Neutrophils % 72 % (35-66) Band Neutrophils % 6 % (0-9) Lymphocytes % 10 % (24-48) Monocytes % 7 % (0-10) Eosinophils % 4 % (0-5) Basophils % 1 % (0-3) Toxic Granulation Mod Toxic Vacuolation Slight Platelet Estimate Adequate (ADEQUATE) Polychromasia Slight Anisocytosis Mod Prothrombin Time 44.2 SEC (11.7-14.0) Prothromb Time International Ratio 5.1 (0.8-1.1) Activated Partial Thromboplast Time 69 SEC (24-38) Sodium Level 140 mmol/L (136-145) Potassium Level 3.4 mmol/L (3.5-5.1) Chloride Level 98 mmol/L (98-107) Carbon Dioxide Level 30 mmol/L (21-32) Anion Gap 12 (6-14) Blood Urea Nitrogen 35 mg/dL (7-20) Creatinine 6.4 mg/dL (0.6-1.0) Estimated GFR (Cockcroft-Gault) 7.6 Glucose Level 112 mg/dL (70-99) Calcium Level 9.8 mg/dL (8.5-10.1) Total Bilirubin 0.3 mg/dL (0.2-1.0) Direct Bilirubin 0.1 mg/dL (0.0-0.2) Aspartate Amino Transf (AST/SGOT) 29 U/L (15-37) Alanine Aminotransferase (ALT/SGPT) < 6 U/L (14-59) Alkaline Phosphatase 199 U/L (46-116) Creatine Kinase 92 U/L (26-192) Creatine Kinase MB (Mass) 0.7 ng/mL (0.0-3.6) Creatine Kinase MB Relative Index 0.8 % (0-4) Total Protein 7.8 g/dL (6.4-8.2) Albumin 3.3 g/dL (3.4-5.0) Laboratory Tests Test 09/05/17 16:30 09/05/17 16:50 09/05/17 17:30 Troponin I Quantitative < 0.017 ng/mL (0.000-0.055) Stool Occult Blood Positive (NEG) White Blood Count 19.0 x10^3/uL (4.0-11.0) Red Blood Count 4.45 x10^6/uL (3.50-5.40) Hemoglobin 12.3 g/dL (12.0-15.5) Hematocrit 39.1 % (36.0-47.0) Mean Corpuscular Volume 88 fL (79-100) Mean Corpuscular Hemoglobin 28 pg (25-35) Mean Corpuscular Hemoglobin Concent 32 g/dL (31-37) Red Cell Distribution Width 26.4 % (11.5-14.5) Platelet Count 259 x10^3/uL (140-400) Neutrophils (%) (Auto) 83 % (31-73) Lymphocytes (%) (Auto) 7 % (24-48) Monocytes (%) (Auto) 8 % (0-9) Eosinophils (%) (Auto) 2 % (0-3) Basophils (%) (Auto) 1 % (0-3) Neutrophils # (Auto) 15.8 x10^3uL (1.8-7.7) Lymphocytes # (Auto) 1.3 x10^3/uL (1.0-4.8) Monocytes # (Auto) 1.5 x10^3/uL (0.0-1.1) Eosinophils # (Auto) 0.4 x10^3/uL (0.0-0.7) Basophils # (Auto) 0.1 x10^3/uL (0.0-0.2) Segmented Neutrophils % 72 % (35-66) Band Neutrophils % 6 % (0-9) Lymphocytes % 10 % (24-48) Monocytes % 7 % (0-10) Eosinophils % 4 % (0-5) Basophils % 1 % (0-3) Toxic Granulation Mod Toxic Vacuolation Slight Platelet Estimate Adequate (ADEQUATE) Polychromasia Slight Anisocytosis Mod Prothrombin Time 44.2 SEC (11.7-14.0) Prothromb Time International Ratio 5.1 (0.8-1.1) Activated Partial Thromboplast Time 69 SEC (24-38) Sodium Level 140 mmol/L (136-145) Potassium Level 3.4 mmol/L (3.5-5.1) Chloride Level 98 mmol/L (98-107) Carbon Dioxide Level 30 mmol/L (21-32) Anion Gap 12 (6-14) Blood Urea Nitrogen 35 mg/dL (7-20) Creatinine 6.4 mg/dL (0.6-1.0) Estimated GFR (Cockcroft-Gault) 7.6 Glucose Level 112 mg/dL (70-99) Calcium Level 9.8 mg/dL (8.5-10.1) Total Bilirubin 0.3 mg/dL (0.2-1.0) Direct Bilirubin 0.1 mg/dL (0.0-0.2) Aspartate Amino Transf (AST/SGOT) 29 U/L (15-37) Alanine Aminotransferase (ALT/SGPT) < 6 U/L (14-59) Alkaline Phosphatase 199 U/L (46-116) Creatine Kinase 92 U/L (26-192) Creatine Kinase MB (Mass) 0.7 ng/mL (0.0-3.6) Creatine Kinase MB Relative Index 0.8 % (0-4) Total Protein 7.8 g/dL (6.4-8.2) Albumin 3.3 g/dL (3.4-5.0) VTE Prophylaxis Ordered VTE Prophylaxis Devices: Yes VTE Pharmacological Prophylaxi: Yes Assessment/Plan Assessment/Plan 1. Hematochezia in the back ground of high INR (5) 2. COumadin toxicity 3. Hx of clots in indwelling RT subclavian HD cath 4, ESRD on HD TTHS 5. Lefft AV fistula site, immature yet 6. Anemia of CKD 7. HTN, asthma, DM, dyslipidemia - all chronic, stable 8. Obesity BMI 33.3 9. Mild to MOd pCM PLAN: Admit 2 mN Give Vit K INR check kavon HH and BMP and iNR tmr HD per renal Consult GI and Renal PT./OT SSI Resume home meds except warf CT abd re the abd pain - dw ER MD (oral contrast only) Agree with c diff stool check WBC 19 - but not unusual to have loose stools with bloody BM as blood is a laxative Seen at ER and dw family my plan - agrees LEXI LEMOS MD Sep 05, 2017 19:27
[2017-09-05] MEDS ORDERED: IOHEXOL 240 MG/ML 50ML VIAL. PO ONE (19:30)
[2017-09-05] MEDS ORDERED: ALBUTEROL SULFATE 2.5 MG/3 ML NEBU. NEB PRN (19:45)
[2017-09-05] MEDS ORDERED: PHYTONADIONE 10 MG/ML AMPUL. SQ ONE (19:45)
--- NOTE | 2017-09-05 20:35 | RAD ---
CT Abdomen and Pelvis without Intravenous Contrast: History: Bloody diarrhea since 1400 hours. Comparison: None. Technique: After administration of oral contrast only, CT of the abdomen and pelvis was performed. Exposure: One or more of the following individualized dose reduction techniques were utilized for this examination: 1. Automated exposure control 2. Adjustment of the mA and/or kV according to patient size 3. Use of iterative reconstruction technique Findings: Evaluation of solid organs is limited by lack of intravenous contrast. Liver, spleen, pancreas, gallbladder, and bilateral adrenal glands unremarkable. No urinary stone is identified. Right kidney demonstrates a few exophytic small lesions, not adequately characterized. No bowel obstruction or inflammation is identified. Appendix is without evidence of inflammation. Colonic diverticulosis is noted, but no convincing diverticulitis is seen. No free air or free fluid is seen in the abdomen or pelvis. Urinary bladder is unremarkable. The uterus is absent. There is a fat-containing umbilical hernia which demonstrates fat stranding/inflammatory change. Degenerative changes are present in the spine. Superior endplate of L1 demonstrates superior endplate compression fracture, age-indeterminate. Impression: 1. Limited by lack of intravenous contrast. 2. No convincing bowel obstruction or inflammation is identified. 3. Colonic diverticulosis. 4. Fat-containing umbilical hernia demonstrating inflammatory change. 5. Superior endplate L1 compression fracture, age-indeterminate. Electronically signed by: Seamus Monte MD (09/05/2017 8:31 PM) [facility]
[2017-09-05 21:00] VITALS: BP 85/58
[2017-09-05] MEDS ORDERED: NON FORMULARY ITEM (Mometasone/Formoterol (Dulera 200 Mcg/5 Mcg Inhaler) 2 PUFF) IH SCH (21:00)
[2017-09-05] MEDS: NYSTATIN 100,000 UNIT/GM TOPICAL CREAM 15GM TUBE. TP SCH (21:00)
[2017-09-05] MEDS: BUDESONIDE 0.5 MG/2 ML NEBU. NEB SCH (22:21)
[2017-09-05] MEDS: ALBUTEROL SULFATE 2.5 MG/3 ML NEBU. NEB SCH (22:21)
[2017-09-05 23:00] VITALS: BP 118/56
[2017-09-05] MEDS: OXYBUTYNIN CHLORIDE 5 MG TABLET PO SCH (23:08)
[2017-09-05] MEDS: CALCIUM CARBONATE 500 MG TAB.CHEW PO SCH (23:09)
[2017-09-05] MEDS: CYCLOBENZAPRINE 10 MG TABLET. PO SCH (23:10)
[2017-09-05] MEDS: ATORVASTATIN CALCIUM 40 MG TABLET. PO SCH (23:10)
[2017-09-05] MEDS: DICLOFENAC SODIUM 1% TOPICAL GEL 100GM TUBE. TP SCH (23:15)
[2017-09-06] VITALS (7 sets, daily range): BP systolic 96–158; BP diastolic 41–59
[2017-09-06] MEDS ORDERED: WARF5TAB7 PO (07:07)
[2017-09-06] MEDS: BUDESONIDE 0.5 MG/2 ML NEBU. NEB SCH ×2 (07:18→20:44)
[2017-09-06] MEDS: ALBUTEROL SULFATE 2.5 MG/3 ML NEBU. NEB SCH ×4 (07:18→20:44)
[2017-09-06 07:46] LABS: BASO # 0.1 x10^3/uL (0.0-0.2); BASO % 1 % (0-3); EOS % 4 % (0-3); HEMATOCRIT 33.9 % (36.0-47.0); HEMOGLOBIN 10.7 g/dL (12.0-15.5); LYMPH % 13 % (24-48); MEAN CORPUSCULAR HEMOGLOBIN 28 pg (25-35); MEAN CORPUSCULAR HGB CONC 32 g/dL (31-37); MEAN CORPUSCULAR VOLUME 88 fL (79-100); MONO % 7 % (0-9); NEUT % 76 % (31-73); PLATELET COUNT 271 x10^3/uL (140-400); RED BLOOD COUNT 3.84 x10^6/uL (3.50-5.40); RED CELL DISTRIBUTION WIDTH 26.7 % (11.5-14.5); WHITE BLOOD COUNT 15.5 x10^3/uL (4.0-11.0)
[2017-09-06 07:54] LABS: PROTHROMBIN TIME PATIENT 39.7 SEC (11.7-14.0)
[2017-09-06 07:55] LABS: CALCIUM 9.2 mg/dL (8.5-10.1); GFR 6.9; POTASSIUM 4.2 mmol/L (3.5-5.1)
[2017-09-06] MEDS: PANTOPRAZOLE 40 MG TABLET.DR. PO SCH (08:00)
[2017-09-06] MEDS: DICLOFENAC SODIUM 1% TOPICAL GEL 100GM TUBE. TP SCH ×4 (08:01→22:06)
[2017-09-06 08:10] LABS: INR 4.5 (0.8-1.1)
[2017-09-06] MEDS ORDERED: ATENOLOL 50 MG TABLET. PO SCH (09:00)
[2017-09-06] MEDS ORDERED: DOXAZOSIN MESYLATE 4 MG TABLET. PO SCH (09:00)
[2017-09-06] MEDS: CYCLOBENZAPRINE 10 MG TABLET. PO SCH (09:00)
[2017-09-06] MEDS: MONTELUKAST SODIUM 10 MG TABLET. PO SCH (09:00)
[2017-09-06] MEDS: metOLazone 2.5 MG TABLET PO SCH (09:00)
[2017-09-06] MEDS ORDERED: cloNIDine TTS-3 1 PATCH PATCH.TDWK TD SCH (09:00)
[2017-09-06] MEDS: NYSTATIN 100,000 UNIT/GM TOPICAL CREAM 15GM TUBE. TP SCH ×3 (09:00→21:00)
[2017-09-06] MEDS: OXYBUTYNIN CHLORIDE 5 MG TABLET PO SCH ×3 (09:00→21:00)
[2017-09-06] MEDS ORDERED: amLODIPine BESYLATE 10 MG TABLET PO SCH (09:00)
[2017-09-06] MEDS: FERROUS SULFATE 325 MG TABLET. PO SCH (09:00)
[2017-09-06] MEDS: CALCIUM CARBONATE 500 MG TAB.CHEW PO SCH ×2 (09:00→22:07)
[2017-09-06] MEDS: POLYETHYLENE GLYCOL 3350 17 GM PACKET. PO SCH (09:00)
[2017-09-06] MEDS: CHOLECALCIFEROL (VITAMIN D3) 1,000 UNIT TABLET PO SCH (09:35)
[2017-09-06] MEDS: CETIRIZINE HCL 10 MG TABLET. PO SCH (09:35)
[2017-09-06] MEDS ORDERED: CALC667T PO (09:45)
[2017-09-06] MEDS ORDERED: TRAM50TA PO (09:45)
--- NOTE | 2017-09-06 10:17 | PDOC2 ---
GI CONSULT Reason For Consult: BRBPR HPI: HPI: 77 y/o female admitted through ER. Ate some gumbo that sat out too long ~2 days ago, began having diarrhea yesterday - brown stool mixed w/ red blood. ESRD on HD through subclavian cath w/ h/o clots, on Warfarin for this, INR 5.1 to 4.5 after vit K. Hgb 12.3 to 10.7 (was in 8s earlier this year), BUN 35 to 38 w/ Cr 6.4 to 7. Fecal occult positive. CT shows diverticulosis and fat- containing umbilical hernia w/ inflammation. C Diff pending. No h/o chronic diarrhea or constipation. Never had issues w/ bleeding before. Denies abd pain to me (H&P mentions this). No n/v. Not really sure about reflux; summary lists Nexium which she's not sure she's taking currently. Normal appetite and stable weight. Remote EGD normal. Colonoscopy ~2 years ago @ [facility] reportedly normal, does recall h/o polyps. No gallbladder, liver, or pancreas history. PMH: PMH: HTN, HLD, asthma, GERD, colon polyps, diverticulosis, anemia, DM, ESRD on HD, hysterectomy FH: Family History: No pertinent hx Social History: Smoke: No ALCOHOL: none Drugs: None ROS: GEN: Denies fevers, chills, sweats HEENT: Denies blurred vision, sore throat CV: Denies chest pain RESP: Denies shortness of air, cough GI: Per HPI : Denies hematuria, dysuria ENDO: Denies weight changes NEURO: Denies confusion, dizziness MSK: Denies weakness, joint pain/swelling SKIN: Denies jaundice, pruritus Vitals: Vitals: Vital Signs Date Time Temp Pulse Resp B/P (MAP) Pulse Ox O2 Delivery O2 Flow Rate FiO2 09/06/17 09:00 71 113/59 09/06/17 07:22 Room Air 09/06/17 07:00 97.9 20 96 97.9 Labs: Labs: Laboratory Tests Test 09/05/17 16:30 09/05/17 16:50 09/05/17 17:30 09/06/17 00:35 Troponin I Quantitative < 0.017 ng/mL (0.000-0.055) < 0.017 ng/mL (0.000-0.055) Stool Occult Blood Positive (NEG) White Blood Count 19.0 x10^3/uL (4.0-11.0) Red Blood Count 4.45 x10^6/uL (3.50-5.40) Hemoglobin 12.3 g/dL (12.0-15.5) Hematocrit 39.1 % (36.0-47.0) Mean Corpuscular Volume 88 fL (79-100) Mean Corpuscular Hemoglobin 28 pg (25-35) Mean Corpuscular Hemoglobin Concent 32 g/dL (31-37) Red Cell Distribution Width 26.4 % (11.5-14.5) Platelet Count 259 x10^3/uL (140-400) Neutrophils (%) (Auto) 83 % (31-73) Lymphocytes (%) (Auto) 7 % (24-48) Monocytes (%) (Auto) 8 % (0-9) Eosinophils (%) (Auto) 2 % (0-3) Basophils (%) (Auto) 1 % (0-3) Neutrophils # (Auto) 15.8 x10^3uL (1.8-7.7) Lymphocytes # (Auto) 1.3 x10^3/uL (1.0-4.8) Monocytes # (Auto) 1.5 x10^3/uL (0.0-1.1) Eosinophils # (Auto) 0.4 x10^3/uL (0.0-0.7) Basophils # (Auto) 0.1 x10^3/uL (0.0-0.2) Segmented Neutrophils % 72 % (35-66) Band Neutrophils % 6 % (0-9) Lymphocytes % 10 % (24-48) Monocytes % 7 % (0-10) Eosinophils % 4 % (0-5) Basophils % 1 % (0-3) Toxic Granulation Mod Toxic Vacuolation Slight Platelet Estimate Adequate (ADEQUATE) Polychromasia Slight Anisocytosis Mod Prothrombin Time 44.2 SEC (11.7-14.0) Prothromb Time International Ratio 5.1 (0.8-1.1) Activated Partial Thromboplast Time 69 SEC (24-38) Sodium Level 140 mmol/L (136-145) Potassium Level 3.4 mmol/L (3.5-5.1) Chloride Level 98 mmol/L (98-107) Carbon Dioxide Level 30 mmol/L (21-32) Anion Gap 12 (6-14) Blood Urea Nitrogen 35 mg/dL (7-20) Creatinine 6.4 mg/dL (0.6-1.0) Estimated GFR (Cockcroft-Gault) 7.6 Glucose Level 112 mg/dL (70-99) Calcium Level 9.8 mg/dL (8.5-10.1) Total Bilirubin 0.3 mg/dL (0.2-1.0) Direct Bilirubin 0.1 mg/dL (0.0-0.2) Aspartate Amino Transf (AST/SGOT) 29 U/L (15-37) Alanine Aminotransferase (ALT/SGPT) < 6 U/L (14-59) Alkaline Phosphatase 199 U/L (46-116) Creatine Kinase 92 U/L (26-192) Creatine Kinase MB (Mass) 0.7 ng/mL (0.0-3.6) Creatine Kinase MB Relative Index 0.8 % (0-4) Total Protein 7.8 g/dL (6.4-8.2) Albumin 3.3 g/dL (3.4-5.0) Test 09/06/17 07:00 White Blood Count 15.5 x10^3/uL (4.0-11.0) Red Blood Count 3.84 x10^6/uL (3.50-5.40) Hemoglobin 10.7 g/dL (12.0-15.5) Hematocrit 33.9 % (36.0-47.0) Mean Corpuscular Volume 88 fL (79-100) Mean Corpuscular Hemoglobin 28 pg (25-35) Mean Corpuscular Hemoglobin Concent 32 g/dL (31-37) Red Cell Distribution Width 26.7 % (11.5-14.5) Platelet Count 271 x10^3/uL (140-400) Neutrophils (%) (Auto) 76 % (31-73) Lymphocytes (%) (Auto) 13 % (24-48) Monocytes (%) (Auto) 7 % (0-9) Eosinophils (%) (Auto) 4 % (0-3) Basophils (%) (Auto) 1 % (0-3) Neutrophils # (Auto) 11.8 x10^3uL (1.8-7.7) Lymphocytes # (Auto) 2.0 x10^3/uL (1.0-4.8) Monocytes # (Auto) 1.0 x10^3/uL (0.0-1.1) Eosinophils # (Auto) 0.5 x10^3/uL (0.0-0.7) Basophils # (Auto) 0.1 x10^3/uL (0.0-0.2) Prothrombin Time 39.7 SEC (11.7-14.0) Prothromb Time International Ratio 4.5 (0.8-1.1) Sodium Level 136 mmol/L (136-145) Potassium Level 4.2 mmol/L (3.5-5.1) Chloride Level 98 mmol/L (98-107) Carbon Dioxide Level 26 mmol/L (21-32) Anion Gap 12 (6-14) Blood Urea Nitrogen 38 mg/dL (7-20) Creatinine 7.0 mg/dL (0.6-1.0) Estimated GFR (Cockcroft-Gault) 6.9 Glucose Level 117 mg/dL (70-99) Calcium Level 9.2 mg/dL (8.5-10.1) Troponin I Quantitative 0.019 ng/mL (0.000-0.055) Allergies: Coded Allergies: NSAIDS (Non-Steroidal Anti-Inflamma (Verified Allergy, Intermediate, ) carvedilol (Verified Allergy, Intermediate, 01/05/15) Medications: Current Medications Medications (Trade) Dose Ordered Sig/Jerson Route PRN Reason Start Time Stop Time Status Last Admin Dose Admin Phytonadione (Vitamin K Ampule) 5 mg 1X ONCE SQ 09/05/17 19:45 09/05/17 19:46 DC 09/05/17 19:50 Atorvastatin Calcium (Lipitor) 40 mg QHS PO 09/05/17 21:00 09/05/17 23:10 Calcium Carbonate/ Glycine (Tums) 500 mg BID PO 09/05/17 21:00 09/05/17 23:09 Vitamin D (Vitamin D3) 2,000 unit DAILY PO 09/06/17 09:00 09/06/17 09:35 Diclofenac Sodium (Voltaren) 4 britt QID TP 09/05/17 21:00 09/06/17 08:01 Cyclobenzaprine HCl (Flexeril) 5 mg TID PO 09/05/17 21:00 09/06/17 09:41 DC 09/05/17 23:10 Pantoprazole Sodium (Protonix) 40 mg DAILYAC PO 09/06/17 07:30 09/06/17 08:00 Cetirizine HCl (ZyrTEC) 10 mg DAILY PO 09/06/17 09:00 09/06/17 09:35 Hydralazine HCl (Apresoline) 100 mg TID PO 09/05/17 21:00 09/05/17 23:09 Oxybutynin Chloride (Ditropan) 5 mg [id number] PO 09/05/17 21:00 09/05/17 23:08 Iohexol (Omnipaque 240 Mg/ml) 30 ml 1X ONCE PO 09/05/17 19:30 09/05/17 19:39 DC 09/05/17 19:30 Albuterol Sulfate (Ventolin Neb Soln) 2.5 mg RTQID NEB 09/05/17 20:00 09/06/17 07:18 Budesonide (Pulmicort) 0.5 mg RTBID NEB 09/05/17 20:00 09/06/17 07:18 Imaging: Imaging: CT A/P w/ oral contrast Findings: Evaluation of solid organs is limited by lack of intravenous contrast. Liver, spleen, pancreas, gallbladder, and bilateral adrenal glands unremarkable. No urinary stone is identified. Right kidney demonstrates a few exophytic small lesions, not adequately characterized. No bowel obstruction or inflammation is identified. Appendix is without evidence of inflammation. Colonic diverticulosis is noted, but no convincing diverticulitis is seen. No free air or free fluid is seen in the abdomen or pelvis. Urinary bladder is unremarkable. The uterus is absent. There is a fat-containing umbilical hernia which demonstrates fat stranding/inflammatory change. Degenerative changes are present in the spine. Superior endplate of L1 demonstrates superior endplate compression fracture, age-indeterminate. Impression: 1. Limited by lack of intravenous contrast. 2. No convincing bowel obstruction or inflammation is identified. 3. Colonic diverticulosis. 4. Fat-containing umbilical hernia demonstrating inflammatory change. 5. Superior endplate L1 compression fracture, age-indeterminate. 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 Agree w/ PPI. KARL WAGNER Sep 06, 2017 10:17
--- NOTE | 2017-09-06 10:21 | PDOC ---
PROGRESS NOTES Chief Complaint Chief Complaint 1. Hematochezia in the back ground of high INR (5) 2. COumadin toxicity 3. Hx of clots in indwelling RT subclavian HD cath 4, ESRD on HD TTHS 5. Lefft AV fistula site, immature yet 6. Anemia of CKD 7. HTN, asthma, DM, dyslipidemia - all chronic, stable 8. Obesity BMI 33.3 9. Mild to MOd pCM History of Present Illness History of Present Illness INR 4 plus, hematochezia continues somwhat per staff CT : Impression: 1. Limited by lack of intravenous contrast. 2. No convincing bowel obstruction or inflammation is identified. 3. Colonic diverticulosis. 4. Fat-containing umbilical hernia demonstrating inflammatory change. 5. Superior endplate L1 compression fracture, age-indeterminate. PALn: Keep clears Await GI rounds MOre vitamin K today INR tmr Hemodynamically stable, otherwise HD per renal dw FRANDY Noyola I fixed her home meds, some discrepancies Vitals Vitals Vital Signs Date Time Temp Pulse Resp B/P (MAP) Pulse Ox O2 Delivery O2 Flow Rate FiO2 09/06/17 09:00 71 113/59 09/06/17 07:22 Room Air 09/06/17 07:00 97.9 20 96 97.9 Physical Exam General: Alert, Oriented X3, Cooperative, No acute distress Lungs: Clear Abdomen: Normal bowel sounds, Soft, No tenderness, No hepatosplenomegaly, No masses Extremities: No clubbing, No cyanosis, No edema, Normal pulses, No tenderness/ swelling Skin: No rashes, No breakdown, No significant lesion Labs LABS Laboratory Tests Test 09/05/17 16:30 09/05/17 16:50 09/05/17 17:30 09/06/17 00:35 Troponin I Quantitative < 0.017 ng/mL (0.000-0.055) < 0.017 ng/mL (0.000-0.055) Stool Occult Blood Positive (NEG) White Blood Count 19.0 x10^3/uL (4.0-11.0) Red Blood Count 4.45 x10^6/uL (3.50-5.40) Hemoglobin 12.3 g/dL (12.0-15.5) Hematocrit 39.1 % (36.0-47.0) Mean Corpuscular Volume 88 fL (79-100) Mean Corpuscular Hemoglobin 28 pg (25-35) Mean Corpuscular Hemoglobin Concent 32 g/dL (31-37) Red Cell Distribution Width 26.4 % (11.5-14.5) Platelet Count 259 x10^3/uL (140-400) Neutrophils (%) (Auto) 83 % (31-73) Lymphocytes (%) (Auto) 7 % (24-48) Monocytes (%) (Auto) 8 % (0-9) Eosinophils (%) (Auto) 2 % (0-3) Basophils (%) (Auto) 1 % (0-3) Neutrophils # (Auto) 15.8 x10^3uL (1.8-7.7) Lymphocytes # (Auto) 1.3 x10^3/uL (1.0-4.8) Monocytes # (Auto) 1.5 x10^3/uL (0.0-1.1) Eosinophils # (Auto) 0.4 x10^3/uL (0.0-0.7) Basophils # (Auto) 0.1 x10^3/uL (0.0-0.2) Segmented Neutrophils % 72 % (35-66) Band Neutrophils % 6 % (0-9) Lymphocytes % 10 % (24-48) Monocytes % 7 % (0-10) Eosinophils % 4 % (0-5) Basophils % 1 % (0-3) Toxic Granulation Mod Toxic Vacuolation Slight Platelet Estimate Adequate (ADEQUATE) Polychromasia Slight Anisocytosis Mod Prothrombin Time 44.2 SEC (11.7-14.0) Prothromb Time International Ratio 5.1 (0.8-1.1) Activated Partial Thromboplast Time 69 SEC (24-38) Sodium Level 140 mmol/L (136-145) Potassium Level 3.4 mmol/L (3.5-5.1) Chloride Level 98 mmol/L (98-107) Carbon Dioxide Level 30 mmol/L (21-32) Anion Gap 12 (6-14) Blood Urea Nitrogen 35 mg/dL (7-20) Creatinine 6.4 mg/dL (0.6-1.0) Estimated GFR (Cockcroft-Gault) 7.6 Glucose Level 112 mg/dL (70-99) Calcium Level 9.8 mg/dL (8.5-10.1) Total Bilirubin 0.3 mg/dL (0.2-1.0) Direct Bilirubin 0.1 mg/dL (0.0-0.2) Aspartate Amino Transf (AST/SGOT) 29 U/L (15-37) Alanine Aminotransferase (ALT/SGPT) < 6 U/L (14-59) Alkaline Phosphatase 199 U/L (46-116) Creatine Kinase 92 U/L (26-192) Creatine Kinase MB (Mass) 0.7 ng/mL (0.0-3.6) Creatine Kinase MB Relative Index 0.8 % (0-4) Total Protein 7.8 g/dL (6.4-8.2) Albumin 3.3 g/dL (3.4-5.0) Test 09/06/17 07:00 White Blood Count 15.5 x10^3/uL (4.0-11.0) Red Blood Count 3.84 x10^6/uL (3.50-5.40) Hemoglobin 10.7 g/dL (12.0-15.5) Hematocrit 33.9 % (36.0-47.0) Mean Corpuscular Volume 88 fL (79-100) Mean Corpuscular Hemoglobin 28 pg (25-35) Mean Corpuscular Hemoglobin Concent 32 g/dL (31-37) Red Cell Distribution Width 26.7 % (11.5-14.5) Platelet Count 271 x10^3/uL (140-400) Neutrophils (%) (Auto) 76 % (31-73) Lymphocytes (%) (Auto) 13 % (24-48) Monocytes (%) (Auto) 7 % (0-9) Eosinophils (%) (Auto) 4 % (0-3) Basophils (%) (Auto) 1 % (0-3) Neutrophils # (Auto) 11.8 x10^3uL (1.8-7.7) Lymphocytes # (Auto) 2.0 x10^3/uL (1.0-4.8) Monocytes # (Auto) 1.0 x10^3/uL (0.0-1.1) Eosinophils # (Auto) 0.5 x10^3/uL (0.0-0.7) Basophils # (Auto) 0.1 x10^3/uL (0.0-0.2) Prothrombin Time 39.7 SEC (11.7-14.0) Prothromb Time International Ratio 4.5 (0.8-1.1) Sodium Level 136 mmol/L (136-145) Potassium Level 4.2 mmol/L (3.5-5.1) Chloride Level 98 mmol/L (98-107) Carbon Dioxide Level 26 mmol/L (21-32) Anion Gap 12 (6-14) Blood Urea Nitrogen 38 mg/dL (7-20) Creatinine 7.0 mg/dL (0.6-1.0) Estimated GFR (Cockcroft-Gault) 6.9 Glucose Level 117 mg/dL (70-99) Calcium Level 9.2 mg/dL (8.5-10.1) Troponin I Quantitative 0.019 ng/mL (0.000-0.055) Review of Systems Review of Systems some RT lower abd pain, no soa, cp, emesis Assessment and Plan Assessmemt and Plan Problems Medical Problems: (1) Bloody diarrhea Status: Acute Problems: Comment Review of Relevant I have reviewed the following items shalini (where applicable) has been applied. Labs Laboratory Tests Test 09/05/17 16:30 09/05/17 16:50 09/05/17 17:30 09/06/17 00:35 Troponin I Quantitative < 0.017 ng/mL (0.000-0.055) < 0.017 ng/mL (0.000-0.055) Stool Occult Blood Positive (NEG) White Blood Count 19.0 x10^3/uL (4.0-11.0) Red Blood Count 4.45 x10^6/uL (3.50-5.40) Hemoglobin 12.3 g/dL (12.0-15.5) Hematocrit 39.1 % (36.0-47.0) Mean Corpuscular Volume 88 fL (79-100) Mean Corpuscular Hemoglobin 28 pg (25-35) Mean Corpuscular Hemoglobin Concent 32 g/dL (31-37) Red Cell Distribution Width 26.4 % (11.5-14.5) Platelet Count 259 x10^3/uL (140-400) Neutrophils (%) (Auto) 83 % (31-73) Lymphocytes (%) (Auto) 7 % (24-48) Monocytes (%) (Auto) 8 % (0-9) Eosinophils (%) (Auto) 2 % (0-3) Basophils (%) (Auto) 1 % (0-3) Neutrophils # (Auto) 15.8 x10^3uL (1.8-7.7) Lymphocytes # (Auto) 1.3 x10^3/uL (1.0-4.8) Monocytes # (Auto) 1.5 x10^3/uL (0.0-1.1) Eosinophils # (Auto) 0.4 x10^3/uL (0.0-0.7) Basophils # (Auto) 0.1 x10^3/uL (0.0-0.2) Segmented Neutrophils % 72 % (35-66) Band Neutrophils % 6 % (0-9) Lymphocytes % 10 % (24-48) Monocytes % 7 % (0-10) Eosinophils % 4 % (0-5) Basophils % 1 % (0-3) Toxic Granulation Mod Toxic Vacuolation Slight Platelet Estimate Adequate (ADEQUATE) Polychromasia Slight Anisocytosis Mod Prothrombin Time 44.2 SEC (11.7-14.0) Prothromb Time International Ratio 5.1 (0.8-1.1) Activated Partial Thromboplast Time 69 SEC (24-38) Sodium Level 140 mmol/L (136-145) Potassium Level 3.4 mmol/L (3.5-5.1) Chloride Level 98 mmol/L (98-107) Carbon Dioxide Level 30 mmol/L (21-32) Anion Gap 12 (6-14) Blood Urea Nitrogen 35 mg/dL (7-20) Creatinine 6.4 mg/dL (0.6-1.0) Estimated GFR (Cockcroft-Gault) 7.6 Glucose Level 112 mg/dL (70-99) Calcium Level 9.8 mg/dL (8.5-10.1) Total Bilirubin 0.3 mg/dL (0.2-1.0) Direct Bilirubin 0.1 mg/dL (0.0-0.2) Aspartate Amino Transf (AST/SGOT) 29 U/L (15-37) Alanine Aminotransferase (ALT/SGPT) < 6 U/L (14-59) Alkaline Phosphatase 199 U/L (46-116) Creatine Kinase 92 U/L (26-192) Creatine Kinase MB (Mass) 0.7 ng/mL (0.0-3.6) Creatine Kinase MB Relative Index 0.8 % (0-4) Total Protein 7.8 g/dL (6.4-8.2) Albumin 3.3 g/dL (3.4-5.0) Test 09/06/17 07:00 White Blood Count 15.5 x10^3/uL (4.0-11.0) Red Blood Count 3.84 x10^6/uL (3.50-5.40) Hemoglobin 10.7 g/dL (12.0-15.5) Hematocrit 33.9 % (36.0-47.0) Mean Corpuscular Volume 88 fL (79-100) Mean Corpuscular Hemoglobin 28 pg (25-35) Mean Corpuscular Hemoglobin Concent 32 g/dL (31-37) Red Cell Distribution Width 26.7 % (11.5-14.5) Platelet Count 271 x10^3/uL (140-400) Neutrophils (%) (Auto) 76 % (31-73) Lymphocytes (%) (Auto) 13 % (24-48) Monocytes (%) (Auto) 7 % (0-9) Eosinophils (%) (Auto) 4 % (0-3) Basophils (%) (Auto) 1 % (0-3) Neutrophils # (Auto) 11.8 x10^3uL (1.8-7.7) Lymphocytes # (Auto) 2.0 x10^3/uL (1.0-4.8) Monocytes # (Auto) 1.0 x10^3/uL (0.0-1.1) Eosinophils # (Auto) 0.5 x10^3/uL (0.0-0.7) Basophils # (Auto) 0.1 x10^3/uL (0.0-0.2) Prothrombin Time 39.7 SEC (11.7-14.0) Prothromb Time International Ratio 4.5 (0.8-1.1) Sodium Level 136 mmol/L (136-145) Potassium Level 4.2 mmol/L (3.5-5.1) Chloride Level 98 mmol/L (98-107) Carbon Dioxide Level 26 mmol/L (21-32) Anion Gap 12 (6-14) Blood Urea Nitrogen 38 mg/dL (7-20) Creatinine 7.0 mg/dL (0.6-1.0) Estimated GFR (Cockcroft-Gault) 6.9 Glucose Level 117 mg/dL (70-99) Calcium Level 9.2 mg/dL (8.5-10.1) Troponin I Quantitative 0.019 ng/mL (0.000-0.055) Laboratory Tests Test 09/05/17 16:30 09/05/17 16:50 09/05/17 17:30 09/06/17 00:35 Troponin I Quantitative < 0.017 ng/mL (0.000-0.055) < 0.017 ng/mL (0.000-0.055) Stool Occult Blood Positive (NEG) White Blood Count 19.0 x10^3/uL (4.0-11.0) Red Blood Count 4.45 x10^6/uL (3.50-5.40) Hemoglobin 12.3 g/dL (12.0-15.5) Hematocrit 39.1 % (36.0-47.0) Mean Corpuscular Volume 88 fL (79-100) Mean Corpuscular Hemoglobin 28 pg (25-35) Mean Corpuscular Hemoglobin Concent 32 g/dL (31-37) Red Cell Distribution Width 26.4 % (11.5-14.5) Platelet Count 259 x10^3/uL (140-400) Neutrophils (%) (Auto) 83 % (31-73) Lymphocytes (%) (Auto) 7 % (24-48) Monocytes (%) (Auto) 8 % (0-9) Eosinophils (%) (Auto) 2 % (0-3) Basophils (%) (Auto) 1 % (0-3) Neutrophils # (Auto) 15.8 x10^3uL (1.8-7.7) Lymphocytes # (Auto) 1.3 x10^3/uL (1.0-4.8) Monocytes # (Auto) 1.5 x10^3/uL (0.0-1.1) Eosinophils # (Auto) 0.4 x10^3/uL (0.0-0.7) Basophils # (Auto) 0.1 x10^3/uL (0.0-0.2) Segmented Neutrophils % 72 % (35-66) Band Neutrophils % 6 % (0-9) Lymphocytes % 10 % (24-48) Monocytes % 7 % (0-10) Eosinophils % 4 % (0-5) Basophils % 1 % (0-3) Toxic Granulation Mod Toxic Vacuolation Slight Platelet Estimate Adequate (ADEQUATE) Polychromasia Slight Anisocytosis Mod Prothrombin Time 44.2 SEC (11.7-14.0) Prothromb Time International Ratio 5.1 (0.8-1.1) Activated Partial Thromboplast Time 69 SEC (24-38) Sodium Level 140 mmol/L (136-145) Potassium Level 3.4 mmol/L (3.5-5.1) Chloride Level 98 mmol/L (98-107) Carbon Dioxide Level 30 mmol/L (21-32) Anion Gap 12 (6-14) Blood Urea Nitrogen 35 mg/dL (7-20) Creatinine 6.4 mg/dL (0.6-1.0) Estimated GFR (Cockcroft-Gault) 7.6 Glucose Level 112 mg/dL (70-99) Calcium Level 9.8 mg/dL (8.5-10.1) Total Bilirubin 0.3 mg/dL (0.2-1.0) Direct Bilirubin 0.1 mg/dL (0.0-0.2) Aspartate Amino Transf (AST/SGOT) 29 U/L (15-37) Alanine Aminotransferase (ALT/SGPT) < 6 U/L (14-59) Alkaline Phosphatase 199 U/L (46-116) Creatine Kinase 92 U/L (26-192) Creatine Kinase MB (Mass) 0.7 ng/mL (0.0-3.6) Creatine Kinase MB Relative Index 0.8 % (0-4) Total Protein 7.8 g/dL (6.4-8.2) Albumin 3.3 g/dL (3.4-5.0) Test 09/06/17 07:00 White Blood Count 15.5 x10^3/uL (4.0-11.0) Red Blood Count 3.84 x10^6/uL (3.50-5.40) Hemoglobin 10.7 g/dL (12.0-15.5) Hematocrit 33.9 % (36.0-47.0) Mean Corpuscular Volume 88 fL (79-100) Mean Corpuscular Hemoglobin 28 pg (25-35) Mean Corpuscular Hemoglobin Concent 32 g/dL (31-37) Red Cell Distribution Width 26.7 % (11.5-14.5) Platelet Count 271 x10^3/uL (140-400) Neutrophils (%) (Auto) 76 % (31-73) Lymphocytes (%) (Auto) 13 % (24-48) Monocytes (%) (Auto) 7 % (0-9) Eosinophils (%) (Auto) 4 % (0-3) Basophils (%) (Auto) 1 % (0-3) Neutrophils # (Auto) 11.8 x10^3uL (1.8-7.7) Lymphocytes # (Auto) 2.0 x10^3/uL (1.0-4.8) Monocytes # (Auto) 1.0 x10^3/uL (0.0-1.1) Eosinophils # (Auto) 0.5 x10^3/uL (0.0-0.7) Basophils # (Auto) 0.1 x10^3/uL (0.0-0.2) Prothrombin Time 39.7 SEC (11.7-14.0) Prothromb Time International Ratio 4.5 (0.8-1.1) Sodium Level 136 mmol/L (136-145) Potassium Level 4.2 mmol/L (3.5-5.1) Chloride Level 98 mmol/L (98-107) Carbon Dioxide Level 26 mmol/L (21-32) Anion Gap 12 (6-14) Blood Urea Nitrogen 38 mg/dL (7-20) Creatinine 7.0 mg/dL (0.6-1.0) Estimated GFR (Cockcroft-Gault) 6.9 Glucose Level 117 mg/dL (70-99) Calcium Level 9.2 mg/dL (8.5-10.1) Troponin I Quantitative 0.019 ng/mL (0.000-0.055) Medications Current Medications Ondansetron HCl (Zofran) 4 mg PRN Q8HRS PRN IV NAUSEA/VOMITING; Start at 18:45; Stop 09/06/17 at 18:44 Phytonadione (Vitamin K Ampule) 5 mg 1X ONCE SQ Last administered on t 19:50; Start 09/05/17 at 19:45; Stop 09/05/17 at 19:46; Status DC Acetaminophen/ Codeine Phosphate (Tylenol #3) 1 tab PRN Q8HRS PRN PO PAIN; Start 09/05/17 at 19:15 Amlodipine Besylate (Norvasc) 10 mg DAILY PO ; Start 09/06/17 at 09:00; Stop 09/06/17 at 09:41; Status DC Atenolol (Tenormin) 50 mg DAILY PO ; Start 09/06/17 at 09:00; Stop 09/06/17 at 09:41; Status DC Atorvastatin Calcium (Lipitor) 40 mg QHS PO Last administered on 09/05/17 23: 10; Start 09/05/17 at 21:00 Calcium Carbonate/ Glycine (Tums) 500 mg BID PO Last administered on 23:09; Start 09/05/17 at 21:00 Vitamin D (Vitamin D3) 2,000 unit DAILY PO Last administered on 09/06/17 09: 35; Start 09/06/17 at 09:00 Clonidine HCl (Catapres Tts-3) 1 patch WEEKLY TD ; Start 09/06/17 at 09:00; Stop 09/06/17 at 09:41; Status DC Darbepoetin Umang (Aranesp) 100 mcg WEEKLYHS SQ ; Start 09/11/17 at 21:00 Diclofenac Sodium (Voltaren) 4 britt QID TP Last administered on 09/06/17 08:01 ; Start 09/05/17 at 21:00 Doxazosin Mesylate (Cardura) 4 mg DAILY PO ; Start 09/06/17 at 09:00; Stop at 09:41; Status DC Ferrous Sulfate (Feosol) 325 mg DAILY PO ; Start 09/06/17 at 09:00 Acetaminophen/ Hydrocodone Bitart (Lortab 5/325) 1 tab PRN Q6HRS PRN PO PAIN; Start 09/05/17 at 19:15 Montelukast Sodium (Singulair) 10 mg DAILY PO ; Start 09/06/17 at 09:00 Polyethylene Glycol (miraLAX PACKET) 17 gm DAILY PO ; Start 09/06/17 at 09:00 Non-Formulary Medication 2 puff PRN Q4-6HRS IH ; Start 09/05/17 at 19:15; Stop 09/05/17 at 19:43; Status DC Cyclobenzaprine HCl (Flexeril) 5 mg TID PO Last administered on 09/05/17 23: 10; Start 09/05/17 at 21:00; Stop 09/06/17 at 09:41; Status DC Pantoprazole Sodium (Protonix) 40 mg DAILYAC PO Last administered on 08:00; Start 09/06/17 at 07:30 Cetirizine HCl (ZyrTEC) 10 mg DAILY PO Last administered on 09/06/17 09:35; Start 09/06/17 at 09:00 Hydralazine HCl (Apresoline) 100 mg TID PO Last administered on 09/05/17 23: 09; Start 09/05/17 at 21:00 Metolazone (Zaroxolyn) 5 mg DAILY PO ; Start 09/06/17 at 09:00 Non-Formulary Medication 2 puff BID IH ; Start 09/05/17 at 21:00; Stop at 21:00; Status DC Nystatin (Mycostatin) 1 britt TID TP ; Start 09/05/17 at 21:00 Non-Formulary Medication 2 mg TID PRN PO MUSCLE SPASMS; Start 09/05/17 at 19: 15; Stop 09/05/17 at 19:38; Status DC Oxybutynin Chloride (Ditropan) 5 mg [id number] PO Last administered on 09/05/17 23:08; Start 09/05/17 at 21:00 Hydralazine HCl (Apresoline Inj) 10 mg PRN Q4HRS PRN IVP ELEVATED BP, SEE COMMENTS; Start 09/05/17 at 19:15 Diphenhydramine HCl (Benadryl) 25 mg PRN QHS PRN PO INSOMNIA; Start 09/05/17 at 19:15 Iohexol (Omnipaque 240 Mg/ml) 30 ml 1X ONCE PO Last administered on 19:30; Start 09/05/17 at 19:30; Stop 09/05/17 at 19:39; Status DC Albuterol Sulfate (Ventolin Neb Soln) 2.5 mg PRN Q4HRS PRN NEB SHORTNESS OF BREATH; Start 09/05/17 at 19:45 Albuterol Sulfate (Ventolin Neb Soln) 2.5 mg RTQID NEB Last administered on 07:18; Start 09/05/17 at 20:00 Budesonide (Pulmicort) 0.5 mg RTBID NEB Last administered on 09/06/17 07:18; Start 09/05/17 at 20:00 Active Scripts Active Aranesp Syringe (Darbepoetin Umang In Polysorbat) 100 Mcg/0.5 Ml Disp.syrin 100 Mcg SQ WEEKLYHS Metolazone 5 Mg Tablet 5 Mg PO DAILY Tenormin (Atenolol) 50 Mg Tablet 50 Mg PO DAILY Reported Calcium Acetate 667 Mg Tablet 2,001 Mg PO TIDWMEALS Tramadol Hcl 50 Mg Tablet 50 Mg PO PRN Q6-8HRS PRN Warfarin Sodium 5 Mg Tablet 5 Mg PO DAILY Verena Allergy (Fexofenadine Hcl) 180 Mg Tablet 180 Mg PO DAILY Vitamin D3 (Cholecalciferol (Vitamin D3)) 1,000 Unit Tablet 2,000 Unit PO DAILY Proair Hfa Inhaler (Albuterol Sulfate) 8.5 Gm Hfa.aer.ad 2 Puff IH PRN Q4-6HRS Dulera 200 Mcg/5 Mcg Inhaler (Mometasone/Formoterol) 13 Gm Hfa.aer.ad 2 Puff IH BID Esomeprazole Capsule (Esomeprazole Strontium) 40 Mg Capsule.dr 40 Mg PO DAILYAC Voltaren (Diclofenac Sodium) 100 Gm Gel..gram. 4 Gm TP QID Lipitor (Atorvastatin Calcium) 40 Mg Tablet 1 Tab PO QHS Hydralazine Hcl 100 Mg Tablet 1 Tab PO TID Vitals/I & O Vital Sign - Last 24 Hours 09/05/17 09/05/17 09/05/17 09/05/17 16:15 17:00 17:15 18:00 Temp 97.5 97.5 Pulse 73 73 74 74 Resp 20 18 18 19 B/P (MAP) 108/51 (70) 103/51 (68) 100/51 (67) 183/81 (115) Pulse Ox 91 98 98 96 O2 Delivery Room Air Room Air Room Air 09/05/17 09/05/17 09/05/17 09/05/17 18:30 19:00 19:30 20:00 Pulse 72 70 70 66 Resp 20 B/P (MAP) 135/63 (87) 140/63 (88) 137/59 (85) 126/59 (81) Pulse Ox 95 95 95 95 O2 Delivery Room Air Room Air Room Air Room Air 09/05/17 09/05/17 09/05/17 09/05/17 20:30 21:00 22:30 23:00 Temp 98.3 97.7 98.3 97.7 Pulse 67 70 Resp 20 B/P (MAP) 85/58 (67) 118/56 (76) Pulse Ox 93 96 100 O2 Delivery Room Air Room Air Room Air Room Air 09/05/17 09/06/17 09/06/17 09/06/17 23:09 03:00 07:00 07:22 Temp 97.8 97.9 97.8 97.9 Pulse 69 58 71 Resp 20 20 B/P (MAP) 118/56 96/41 (59) 113/59 (77) Pulse Ox 96 96 O2 Delivery Room Air Room Air Room Air 09/06/17 09:00 Pulse 71 B/P (MAP) 113/59 LEXI LEMOS MD Sep 06, 2017 10:21
[2017-09-06] MEDS ORDERED: PHYTONADIONE 10 MG/ML AMPUL. SQ ONE (10:30)
--- NOTE | 2017-09-06 10:36 | PDOC2 ---
CONSULT Date of Consult Date of Consult DATE: 09/06/17 TIME: 10:30 Reason for Consult Reason for Consult: ESRD Referring Physician Referring Physician: Dr Cosby Identification/Chief Complaint Chief Complaint Diarrhea Problems: Source Source: Chart review, Patient History of Present Illness Reason for Visit: as dictated Past Medical History Cardiovascular: HTN, Hyperlipidemia Pulmonary: Asthma, Bronchitis GI: GERD Heme/Onc: Anemia NOS Hepatobiliary: No pertinent hx Psych: No pertinent hx Musculoskeletal: low back pain Rheumatologic: No pertinent hx Infectious disease: No pertinent hx ENT: No pertinent hx Endocrine: Diabetes Past Surgical History Past Surgical History: Other (HD cath RT subclavian, AV fistula left arm) Family History Family History: Hypertension Social History No ALCOHOL: none Drugs: None Lives: Alone Current Problem List Problem List Problems Medical Problems: (1) Bloody diarrhea Status: Acute Current Medications Current Medications Current Medications Ondansetron HCl (Zofran) 4 mg PRN Q8HRS PRN IV NAUSEA/VOMITING; Start at 18:45; Stop 09/06/17 at 18:44 Phytonadione (Vitamin K Ampule) 5 mg 1X ONCE SQ Last administered on 19:50; Start 09/05/17 at 19:45; Stop 09/05/17 at 19:46; Status DC Acetaminophen/ Codeine Phosphate (Tylenol #3) 1 tab PRN Q8HRS PRN PO PAIN; Start 09/05/17 at 19:15 Amlodipine Besylate (Norvasc) 10 mg DAILY PO ; Start 09/06/17 at 09:00; Stop 09/06/17 at 09:41; Status DC Atenolol (Tenormin) 50 mg DAILY PO ; Start 09/06/17 at 09:00; Stop 09/06/17 at 09:41; Status DC Atorvastatin Calcium (Lipitor) 40 mg QHS PO Last administered on 09/05/17 23: 10; Start 09/05/17 at 21:00 Calcium Carbonate/ Glycine (Tums) 500 mg BID PO Last administered on 23:09; Start 09/05/17 at 21:00 Vitamin D (Vitamin D3) 2,000 unit DAILY PO Last administered on 09/06/17 09: 35; Start 09/06/17 at 09:00 Clonidine HCl (Catapres Tts-3) 1 patch WEEKLY TD ; Start 09/06/17 at 09:00; Stop 09/06/17 at 09:41; Status DC Darbepoetin Umang (Aranesp) 100 mcg WEEKLYHS SQ ; Start 09/11/17 at 21:00 Diclofenac Sodium (Voltaren) 4 britt QID TP Last administered on 09/06/17 08:01 ; Start 09/05/17 at 21:00 Doxazosin Mesylate (Cardura) 4 mg DAILY PO ; Start 09/06/17 at 09:00; Stop at 09:41; Status DC Ferrous Sulfate (Feosol) 325 mg DAILY PO ; Start 09/06/17 at 09:00 Acetaminophen/ Hydrocodone Bitart (Lortab 5/325) 1 tab PRN Q6HRS PRN PO PAIN; Start 09/05/17 at 19:15 Montelukast Sodium (Singulair) 10 mg DAILY PO ; Start 09/06/17 at 09:00 Polyethylene Glycol (miraLAX PACKET) 17 gm DAILY PO ; Start 09/06/17 at 09:00 Non-Formulary Medication 2 puff PRN Q4-6HRS IH ; Start 09/05/17 at 19:15; Stop 09/05/17 at 19:43; Status DC Cyclobenzaprine HCl (Flexeril) 5 mg TID PO Last administered on 09/05/17 23: 10; Start 09/05/17 at 21:00; Stop 09/06/17 at 09:41; Status DC Pantoprazole Sodium (Protonix) 40 mg DAILYAC PO Last administered on 08:00; Start 09/06/17 at 07:30 Cetirizine HCl (ZyrTEC) 10 mg DAILY PO Last administered on 09/06/17 09:35; Start 09/06/17 at 09:00 Hydralazine HCl (Apresoline) 100 mg TID PO Last administered on 09/05/17 23: 09; Start 09/05/17 at 21:00 Metolazone (Zaroxolyn) 5 mg DAILY PO ; Start 09/06/17 at 09:00 Non-Formulary Medication 2 puff BID IH ; Start 09/05/17 at 21:00; Stop at 21:00; Status DC Nystatin (Mycostatin) 1 britt TID TP ; Start 09/05/17 at 21:00 Non-Formulary Medication 2 mg TID PRN PO MUSCLE SPASMS; Start 09/05/17 at 19: 15; Stop 09/05/17 at 19:38; Status DC Oxybutynin Chloride (Ditropan) 5 mg [id number] PO Last administered on 09/05/17 23:08; Start 09/05/17 at 21:00 Hydralazine HCl (Apresoline Inj) 10 mg PRN Q4HRS PRN IVP ELEVATED BP, SEE COMMENTS; Start 09/05/17 at 19:15 Diphenhydramine HCl (Benadryl) 25 mg PRN QHS PRN PO INSOMNIA; Start 09/05/17 at 19:15 Iohexol (Omnipaque 240 Mg/ml) 30 ml 1X ONCE PO Last administered on 19:30; Start 09/05/17 at 19:30; Stop 09/05/17 at 19:39; Status DC Albuterol Sulfate (Ventolin Neb Soln) 2.5 mg PRN Q4HRS PRN NEB SHORTNESS OF BREATH; Start 09/05/17 at 19:45 Albuterol Sulfate (Ventolin Neb Soln) 2.5 mg RTQID NEB Last administered on 07:18; Start 09/05/17 at 20:00 Budesonide (Pulmicort) 0.5 mg RTBID NEB Last administered on 09/06/17 07:18; Start 09/05/17 at 20:00 Phytonadione (Vitamin K Ampule) 10 mg 1X ONCE SQ ; Start 09/06/17 at 10:30; Stop 09/06/17 at 10:31 Active Scripts Active Aranesp Syringe (Darbepoetin Umang In Polysorbat) 100 Mcg/0.5 Ml Disp.syrin 100 Mcg SQ WEEKLYHS Metolazone 5 Mg Tablet 5 Mg PO DAILY Tenormin (Atenolol) 50 Mg Tablet 50 Mg PO DAILY Reported Calcium Acetate 667 Mg Tablet 2,001 Mg PO TIDWMEALS Tramadol Hcl 50 Mg Tablet 50 Mg PO PRN Q6-8HRS PRN Warfarin Sodium 5 Mg Tablet 5 Mg PO DAILY Verena Allergy (Fexofenadine Hcl) 180 Mg Tablet 180 Mg PO DAILY Vitamin D3 (Cholecalciferol (Vitamin D3)) 1,000 Unit Tablet 2,000 Unit PO DAILY Proair Hfa Inhaler (Albuterol Sulfate) 8.5 Gm Hfa.aer.ad 2 Puff IH PRN Q4-6HRS Dulera 200 Mcg/5 Mcg Inhaler (Mometasone/Formoterol) 13 Gm Hfa.aer.ad 2 Puff IH BID Esomeprazole Capsule (Esomeprazole Strontium) 40 Mg Capsule.dr 40 Mg PO DAILYAC Voltaren (Diclofenac Sodium) 100 Gm Gel..gram. 4 Gm TP QID Lipitor (Atorvastatin Calcium) 40 Mg Tablet 1 Tab PO QHS Hydralazine Hcl 100 Mg Tablet 1 Tab PO TID Allergies Allergies: Coded Allergies: NSAIDS (Non-Steroidal Anti-Inflamma (Verified Allergy, Intermediate, ) carvedilol (Verified Allergy, Intermediate, 01/05/15) ROS Review of System GEN: no Fevers no Chills EYES: no new Visual Complaints ENT: no EN Drainage no Hearing deficiets CVS: no Orthopnea no CP RESP: no SOB no COULTER GI: min Nausea no Vomiting + Diarrhea : no Dysuria no Urgency HEME: no easy bruising no Palp Ly Nodes NEURO no Focal Weakness no Sz PSYCH: no Suicidal Ideation no Depression SKIN: no Rashes ENDO: no Polyuria or Polydipsia no Hot/Cold Intolerance MU SK: occ Arthraigia no Myalgia Physical Exam Physical Exam General Appearance: Awake Alert Oriented x 3 In no Distress Eyes: VIsion Unchanged Conjunctiva Normal EN: No EN Drainage Mucous Memb. mois Neck: no JVD min JVP Supple no Thyromegaly CVS: S1 S2 soft Murmur No Gallop No Rub tr Edema Resp: no Rales no Rhonchi no Acc. Muscle use GI: BAS +ve NO Bruit Non Tender Non Distended : no CVA tenderness; no Suprapubic Tenderness SKIN: no Rashes Breast Exam deferred Mu.Sk: Adequate ROM no Muscle Atrophy Heme: Unable to palpate Obvious LAD no palp Splenomegaly NEURO: Good Strength and Tone Cranial Nerves II - XII grossly intact Psych: not Depressed no Active hallucination Vital Signs Vital Signs Date Time Temp Pulse Resp B/P (MAP) Pulse Ox O2 Delivery O2 Flow Rate FiO2 09/06/17 09:00 71 113/59 09/06/17 08:00 Room Air 09/06/17 07:00 97.9 20 96 97.9 Assessment & Plan ESRD: Current FLuid and E-lyte status does not necessitate emergent need for Dialysis. Will re-evaluate for Dialysis in am and continue on TTSat schedule. Low K POA - now better (rebound post HD) HypoAlb - pt wants a pork chop for lunch - she tthinks she is eating better of late Anemia: ? due to GI losses, drops in H/H noted so restart Epogen Transfuse with next HD as needed. HTN: Current BP meds reviewed. See orders for changes. Coagulopahty - can give FFp with am HD if needed Bone & Mineral: follow Phos and later binder regimen as needed Discussed Plan of Care and prognosis etc. at length with pt Labs Labs Laboratory Tests Test 09/05/17 16:30 09/05/17 16:50 09/05/17 17:30 09/06/17 00:35 Troponin I Quantitative < 0.017 ng/mL (0.000-0.055) < 0.017 ng/mL (0.000-0.055) Stool Occult Blood Positive (NEG) White Blood Count 19.0 x10^3/uL (4.0-11.0) Red Blood Count 4.45 x10^6/uL (3.50-5.40) Hemoglobin 12.3 g/dL (12.0-15.5) Hematocrit 39.1 % (36.0-47.0) Mean Corpuscular Volume 88 fL (79-100) Mean Corpuscular Hemoglobin 28 pg (25-35) Mean Corpuscular Hemoglobin Concent 32 g/dL (31-37) Red Cell Distribution Width 26.4 % (11.5-14.5) Platelet Count 259 x10^3/uL (140-400) Neutrophils (%) (Auto) 83 % (31-73) Lymphocytes (%) (Auto) 7 % (24-48) Monocytes (%) (Auto) 8 % (0-9) Eosinophils (%) (Auto) 2 % (0-3) Basophils (%) (Auto) 1 % (0-3) Neutrophils # (Auto) 15.8 x10^3uL (1.8-7.7) Lymphocytes # (Auto) 1.3 x10^3/uL (1.0-4.8) Monocytes # (Auto) 1.5 x10^3/uL (0.0-1.1) Eosinophils # (Auto) 0.4 x10^3/uL (0.0-0.7) Basophils # (Auto) 0.1 x10^3/uL (0.0-0.2) Segmented Neutrophils % 72 % (35-66) Band Neutrophils % 6 % (0-9) Lymphocytes % 10 % (24-48) Monocytes % 7 % (0-10) Eosinophils % 4 % (0-5) Basophils % 1 % (0-3) Toxic Granulation Mod Toxic Vacuolation Slight Platelet Estimate Adequate (ADEQUATE) Polychromasia Slight Anisocytosis Mod Prothrombin Time 44.2 SEC (11.7-14.0) Prothromb Time International Ratio 5.1 (0.8-1.1) Activated Partial Thromboplast Time 69 SEC (24-38) Sodium Level 140 mmol/L (136-145) Potassium Level 3.4 mmol/L (3.5-5.1) Chloride Level 98 mmol/L (98-107) Carbon Dioxide Level 30 mmol/L (21-32) Anion Gap 12 (6-14) Blood Urea Nitrogen 35 mg/dL (7-20) Creatinine 6.4 mg/dL (0.6-1.0) Estimated GFR (Cockcroft-Gault) 7.6 Glucose Level 112 mg/dL (70-99) Calcium Level 9.8 mg/dL (8.5-10.1) Total Bilirubin 0.3 mg/dL (0.2-1.0) Direct Bilirubin 0.1 mg/dL (0.0-0.2) Aspartate Amino Transf (AST/SGOT) 29 U/L (15-37) Alanine Aminotransferase (ALT/SGPT) < 6 U/L (14-59) Alkaline Phosphatase 199 U/L (46-116) Creatine Kinase 92 U/L (26-192) Creatine Kinase MB (Mass) 0.7 ng/mL (0.0-3.6) Creatine Kinase MB Relative Index 0.8 % (0-4) Total Protein 7.8 g/dL (6.4-8.2) Albumin 3.3 g/dL (3.4-5.0) Test 09/06/17 07:00 White Blood Count 15.5 x10^3/uL (4.0-11.0) Red Blood Count 3.84 x10^6/uL (3.50-5.40) Hemoglobin 10.7 g/dL (12.0-15.5) Hematocrit 33.9 % (36.0-47.0) Mean Corpuscular Volume 88 fL (79-100) Mean Corpuscular Hemoglobin 28 pg (25-35) Mean Corpuscular Hemoglobin Concent 32 g/dL (31-37) Red Cell Distribution Width 26.7 % (11.5-14.5) Platelet Count 271 x10^3/uL (140-400) Neutrophils (%) (Auto) 76 % (31-73) Lymphocytes (%) (Auto) 13 % (24-48) Monocytes (%) (Auto) 7 % (0-9) Eosinophils (%) (Auto) 4 % (0-3) Basophils (%) (Auto) 1 % (0-3) Neutrophils # (Auto) 11.8 x10^3uL (1.8-7.7) Lymphocytes # (Auto) 2.0 x10^3/uL (1.0-4.8) Monocytes # (Auto) 1.0 x10^3/uL (0.0-1.1) Eosinophils # (Auto) 0.5 x10^3/uL (0.0-0.7) Basophils # (Auto) 0.1 x10^3/uL (0.0-0.2) Prothrombin Time 39.7 SEC (11.7-14.0) Prothromb Time International Ratio 4.5 (0.8-1.1) Sodium Level 136 mmol/L (136-145) Potassium Level 4.2 mmol/L (3.5-5.1) Chloride Level 98 mmol/L (98-107) Carbon Dioxide Level 26 mmol/L (21-32) Anion Gap 12 (6-14) Blood Urea Nitrogen 38 mg/dL (7-20) Creatinine 7.0 mg/dL (0.6-1.0) Estimated GFR (Cockcroft-Gault) 6.9 Glucose Level 117 mg/dL (70-99) Calcium Level 9.2 mg/dL (8.5-10.1) Troponin I Quantitative 0.019 ng/mL (0.000-0.055) Laboratory Tests Test 09/05/17 16:30 09/05/17 16:50 09/05/17 17:30 09/06/17 00:35 Troponin I Quantitative < 0.017 ng/mL (0.000-0.055) < 0.017 ng/mL (0.000-0.055) Stool Occult Blood Positive (NEG) White Blood Count 19.0 x10^3/uL (4.0-11.0) Red Blood Count 4.45 x10^6/uL (3.50-5.40) Hemoglobin 12.3 g/dL (12.0-15.5) Hematocrit 39.1 % (36.0-47.0) Mean Corpuscular Volume 88 fL (79-100) Mean Corpuscular Hemoglobin 28 pg (25-35) Mean Corpuscular Hemoglobin Concent 32 g/dL (31-37) Red Cell Distribution Width 26.4 % (11.5-14.5) Platelet Count 259 x10^3/uL (140-400) Neutrophils (%) (Auto) 83 % (31-73) Lymphocytes (%) (Auto) 7 % (24-48) Monocytes (%) (Auto) 8 % (0-9) Eosinophils (%) (Auto) 2 % (0-3) Basophils (%) (Auto) 1 % (0-3) Neutrophils # (Auto) 15.8 x10^3uL (1.8-7.7) Lymphocytes # (Auto) 1.3 x10^3/uL (1.0-4.8) Monocytes # (Auto) 1.5 x10^3/uL (0.0-1.1) Eosinophils # (Auto) 0.4 x10^3/uL (0.0-0.7) Basophils # (Auto) 0.1 x10^3/uL (0.0-0.2) Segmented Neutrophils % 72 % (35-66) Band Neutrophils % 6 % (0-9) Lymphocytes % 10 % (24-48) Monocytes % 7 % (0-10) Eosinophils % 4 % (0-5) Basophils % 1 % (0-3) Toxic Granulation Mod Toxic Vacuolation Slight Platelet Estimate Adequate (ADEQUATE) Polychromasia Slight Anisocytosis Mod Prothrombin Time 44.2 SEC (11.7-14.0) Prothromb Time International Ratio 5.1 (0.8-1.1) Activated Partial Thromboplast Time 69 SEC (24-38) Sodium Level 140 mmol/L (136-145) Potassium Level 3.4 mmol/L (3.5-5.1) Chloride Level 98 mmol/L (98-107) Carbon Dioxide Level 30 mmol/L (21-32) Anion Gap 12 (6-14) Blood Urea Nitrogen 35 mg/dL (7-20) Creatinine 6.4 mg/dL (0.6-1.0) Estimated GFR (Cockcroft-Gault) 7.6 Glucose Level 112 mg/dL (70-99) Calcium Level 9.8 mg/dL (8.5-10.1) Total Bilirubin 0.3 mg/dL (0.2-1.0) Direct Bilirubin 0.1 mg/dL (0.0-0.2) Aspartate Amino Transf (AST/SGOT) 29 U/L (15-37) Alanine Aminotransferase (ALT/SGPT) < 6 U/L (14-59) Alkaline Phosphatase 199 U/L (46-116) Creatine Kinase 92 U/L (26-192) Creatine Kinase MB (Mass) 0.7 ng/mL (0.0-3.6) Creatine Kinase MB Relative Index 0.8 % (0-4) Total Protein 7.8 g/dL (6.4-8.2) Albumin 3.3 g/dL (3.4-5.0) Test 09/06/17 07:00 White Blood Count 15.5 x10^3/uL (4.0-11.0) Red Blood Count 3.84 x10^6/uL (3.50-5.40) Hemoglobin 10.7 g/dL (12.0-15.5) Hematocrit 33.9 % (36.0-47.0) Mean Corpuscular Volume 88 fL (79-100) Mean Corpuscular Hemoglobin 28 pg (25-35) Mean Corpuscular Hemoglobin Concent 32 g/dL (31-37) Red Cell Distribution Width 26.7 % (11.5-14.5) Platelet Count 271 x10^3/uL (140-400) Neutrophils (%) (Auto) 76 % (31-73) Lymphocytes (%) (Auto) 13 % (24-48) Monocytes (%) (Auto) 7 % (0-9) Eosinophils (%) (Auto) 4 % (0-3) Basophils (%) (Auto) 1 % (0-3) Neutrophils # (Auto) 11.8 x10^3uL (1.8-7.7) Lymphocytes # (Auto) 2.0 x10^3/uL (1.0-4.8) Monocytes # (Auto) 1.0 x10^3/uL (0.0-1.1) Eosinophils # (Auto) 0.5 x10^3/uL (0.0-0.7) Basophils # (Auto) 0.1 x10^3/uL (0.0-0.2) Prothrombin Time 39.7 SEC (11.7-14.0) Prothromb Time International Ratio 4.5 (0.8-1.1) Sodium Level 136 mmol/L (136-145) Potassium Level 4.2 mmol/L (3.5-5.1) Chloride Level 98 mmol/L (98-107) Carbon Dioxide Level 26 mmol/L (21-32) Anion Gap 12 (6-14) Blood Urea Nitrogen 38 mg/dL (7-20) Creatinine 7.0 mg/dL (0.6-1.0) Estimated GFR (Cockcroft-Gault) 6.9 Glucose Level 117 mg/dL (70-99) Calcium Level 9.2 mg/dL (8.5-10.1) Troponin I Quantitative 0.019 ng/mL (0.000-0.055) Images Images Impression: 1. Limited by lack of intravenous contrast. 2. No convincing bowel obstruction or inflammation is identified. 3. Colonic diverticulosis. 4. Fat-containing umbilical hernia demonstrating inflammatory change. 5. Superior endplate L1 compression fracture, age-indeterminate. BRENNAN FONSECA MD Sep 06, 2017 10:36
--- NOTE | 2017-09-06 12:25 | CONS ---
DATE OF CONSULTATION: PRIMARY PHYSICIAN: Dr. Juana Cosby. REASON FOR CONSULTATION: End-stage renal disease, dialysis. HISTORY OF PRESENT ILLNESS: The patient is a 77-year-old female who started dialysis a few months ago. She is under the care of Dr. Moreno. Currently, she dialyzes on a Monday, , Monday schedule at [facility]. She has an AV fistula that has not matured yet and gets dialysis through a right subclavian catheter. She was at home yesterday and thinks she may have eaten a 2-3 day old gumball that was sitting outside. She developed diarrhea, some of which had some blood in it. She was hence brought to the ER for further evaluation. She is noted to have had a potassium of 3.4 on arrival. This was, however, right after her dialysis. This has now recovered to 4.2. She was noted to have a hemoglobin of 12.3 at presentation, which is now down to 10.7. She was noted to be coagulopathic. She did undergo CT scan. Her white count was also elevated and hence was admitted to the hospital where we have been asked to see her for her end-stage renal disease needs. For rest of details, see electronic records. BRENNAN FONSECA MD DR: JERZY/marko JOB#: [id number] / [id number]
[2017-09-06] MEDS: metroNIDAZOLE 500 MG TABLET PO SCH (22:06)
[2017-09-06] MEDS: ATORVASTATIN CALCIUM 40 MG TABLET. PO SCH (22:07)
[2017-09-07 03:15] VITALS: BP 93/40
[2017-09-07] MEDS: metroNIDAZOLE 500 MG TABLET PO SCH ×3 (06:16→22:29)
[2017-09-07 07:00] VITALS: BP 122/47
[2017-09-07] MEDS: ALBUTEROL SULFATE 2.5 MG/3 ML NEBU. NEB SCH ×4 (07:23→19:15)
[2017-09-07] MEDS: BUDESONIDE 0.5 MG/2 ML NEBU. NEB SCH ×2 (07:23→19:16)
[2017-09-07] MEDS: PANTOPRAZOLE 40 MG TABLET.DR. PO SCH (08:01)
[2017-09-07] MEDS: CETIRIZINE HCL 10 MG TABLET. PO SCH (08:01)
[2017-09-07] MEDS: DICLOFENAC SODIUM 1% TOPICAL GEL 100GM TUBE. TP SCH ×4 (08:01→21:33)
[2017-09-07] MEDS: CHOLECALCIFEROL (VITAMIN D3) 1,000 UNIT TABLET PO SCH (08:01)
[2017-09-07 08:32] LABS: HEMATOCRIT 31.7 % (36.0-47.0); HEMOGLOBIN 10.1 g/dL (12.0-15.5)
[2017-09-07 08:40] LABS: INR 1.7 (0.8-1.1); PROTHROMBIN TIME PATIENT 18.7 SEC (11.7-14.0)
[2017-09-07 08:43] LABS: ALBUMIN 2.4 g/dL (3.4-5.0); CALCIUM 8.5 mg/dL (8.5-10.1); CREATININE 9.6 mg/dL (0.6-1.0); GFR 4.8; PHOSPHORUS 3.6 mg/dL (2.6-4.7); POTASSIUM 3.8 mmol/L (3.5-5.1)
[2017-09-07] MEDS: POLYETHYLENE GLYCOL 3350 17 GM PACKET. PO SCH (09:00)
[2017-09-07] MEDS: CALCIUM CARBONATE 500 MG TAB.CHEW PO SCH ×2 (09:00→21:31)
[2017-09-07] MEDS: FERROUS SULFATE 325 MG TABLET. PO SCH (09:00)
[2017-09-07] MEDS: NYSTATIN 100,000 UNIT/GM TOPICAL CREAM 15GM TUBE. TP SCH ×3 (09:00→21:32)
[2017-09-07] MEDS: OXYBUTYNIN CHLORIDE 5 MG TABLET PO SCH ×3 (09:00→21:31)
[2017-09-07] MEDS: MONTELUKAST SODIUM 10 MG TABLET. PO SCH (09:00)
[2017-09-07] MEDS: metOLazone 2.5 MG TABLET PO SCH (09:00)
--- NOTE | 2017-09-07 10:36 | PDOC ---
SUBJECTIVE ROS ESRD Doign better today CVS: no Orthopnea, no CP RESP: no SOB, no COULTER GI: no Nausea, no Vomiting - no further diarrhea : no Dysuria, no Urgency OBJECTIVE Vital Signs Vital Signs Date Time Temp Pulse Resp B/P (MAP) Pulse Ox O2 Delivery O2 Flow Rate FiO2 09/07/17 07:24 95 Room Air 09/07/17 07:00 98.0 63 18 122/47 (72) 98.0 PHYSICAL EXAM Physical Exam General Appearance: Awake Alert Oriented x 3 In no Distress Eyes: VIsion Unchanged Conjunctiva Normal EN: No EN Drainage Mucous Memb. mois Neck: no JVD min JVP Supple no Thyromegaly CVS: S1 S2 soft Murmur No Gallop No Rub tr Edema Resp: no Rales no Rhonchi no Acc. 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 due to GI losses, drops in H/H noted so restart Epogen Transfuse with next HD as needed. HTN: Current BP meds reviewed. See orders for changes. Coagulopahty - can give FFp with am HD if needed Bone & Mineral: follow Phos and later binder regimen as needed - currently well controlled C. Diff +ve - ? Colitis per se Discussed Plan of Care and prognosis etc. at length with pt COMMENT/RELEVANT DATA Meds Current Medications Medications (Trade) Dose Ordered Sig/Jerson Start Time Stop Time Status Last Admin Dose Admin Acetaminophen/ Codeine Phosphate (Tylenol #3) 1 tab PRN Q8HRS PRN 09/05/17 19:15 Acetaminophen/ Hydrocodone Bitart (Lortab 5/325) 1 tab PRN Q6HRS PRN 09/05/17 19:15 Albuterol Sulfate (Ventolin Neb Soln) 2.5 mg RTQID 09/05/17 20:00 09/07/17 07:23 2.5 MG Amlodipine Besylate (Norvasc) 10 mg DAILY 09/06/17 09:00 09/06/17 09:41 DC Atenolol (Tenormin) 50 mg DAILY 09/06/17 09:00 09/06/17 09:41 DC Atorvastatin Calcium (Lipitor) 40 mg QHS 09/05/17 21:00 09/06/17 22:07 40 MG Budesonide (Pulmicort) 0.5 mg RTBID 09/05/17 20:00 09/07/17 07:23 0.5 MG Calcium Carbonate/ Glycine (Tums) 500 mg BID 09/05/17 21:00 09/06/17 22:07 500 MG Cetirizine HCl (ZyrTEC) 10 mg DAILY 09/06/17 09:00 09/07/17 08:01 10 MG Clonidine HCl (Catapres Tts-3) 1 patch WEEKLY 09/06/17 09:00 09/06/17 09:41 DC Cyclobenzaprine HCl (Flexeril) 5 mg TID 09/05/17 21:00 09/06/17 09:41 DC 09/05/17 23:10 5 MG Darbepoetin Umang (Aranesp) 100 mcg WEEKLYHS 09/11/17 21:00 Diclofenac Sodium (Voltaren) 4 britt QID 09/05/17 21:00 09/07/17 08:01 4 BRITT Diphenhydramine HCl (Benadryl) 25 mg PRN QHS PRN 09/05/17 19:15 Doxazosin Mesylate (Cardura) 4 mg DAILY 09/06/17 09:00 09/06/17 09:41 DC Ferrous Sulfate (Feosol) 325 mg DAILY 09/06/17 09:00 Hydralazine HCl (Apresoline Inj) 10 mg PRN Q4HRS PRN 09/05/17 19:15 Hydralazine HCl (Apresoline) 100 mg TID 09/05/17 21:00 09/05/17 23:09 100 MG Iohexol (Omnipaque 240 Mg/ml) 30 ml 1X ONCE 09/05/17 19:30 09/05/17 19:39 DC 09/05/17 19:30 30 ML Metolazone (Zaroxolyn) 5 mg DAILY 09/06/17 09:00 Metronidazole (Flagyl) 500 mg Q8HRS 09/06/17 22:00 09/07/17 06:16 500 MG Montelukast Sodium (Singulair) 10 mg DAILY 09/06/17 09:00 Non-Formulary Medication 2 mg TID PRN 09/05/17 19:15 09/05/17 19:38 DC Nystatin (Mycostatin) 1 britt TID 09/05/17 21:00 Ondansetron HCl (Zofran) 4 mg PRN Q8HRS PRN 09/05/17 18:45 09/06/17 18:44 DC Oxybutynin Chloride (Ditropan) 5 mg [id number] 09/05/17 21:00 09/05/17 23:08 5 MG Pantoprazole Sodium (Protonix) 40 mg DAILYAC 09/06/17 07:30 09/07/17 08:01 40 MG Phytonadione (Vitamin K Ampule) 10 mg 1X ONCE 09/06/17 10:30 09/06/17 10:31 DC 09/06/17 10:46 10 MG Polyethylene Glycol (miraLAX PACKET) 17 gm DAILY 09/06/17 09:00 Vitamin D (Vitamin D3) 2,000 unit DAILY 09/06/17 09:00 09/07/17 08:01 2,000 UNIT Lab Laboratory Tests Test 09/07/17 08:15 Hemoglobin 10.1 g/dL (12.0-15.5) Hematocrit 31.7 % (36.0-47.0) Mean Corpuscular Hemoglobin Concent 32 g/dL (31-37) Prothrombin Time 18.7 SEC (11.7-14.0) Prothromb Time International Ratio 1.7 (0.8-1.1) Sodium Level 134 mmol/L (136-145) Potassium Level 3.8 mmol/L (3.5-5.1) Chloride Level 97 mmol/L (98-107) Carbon Dioxide Level 28 mmol/L (21-32) Anion Gap 9 (6-14) Blood Urea Nitrogen 47 mg/dL (7-20) Creatinine 9.6 mg/dL (0.6-1.0) Estimated GFR (Cockcroft-Gault) 4.8 Glucose Level 91 mg/dL (70-99) Calcium Level 8.5 mg/dL (8.5-10.1) Phosphorus Level 3.6 mg/dL (2.6-4.7) Albumin 2.4 g/dL (3.4-5.0) BRENNAN FONSECA MD Sep 07, 2017 10:36
[2017-09-07 11:00] VITALS: BP 133/53
--- NOTE | 2017-09-07 11:22 | PDOC ---
Subjective: Subjective: No further diarrhea or bleeding. Wants to advance diet and go home after dialysis. Objective: Objective: Reviewed w/ RN. Vital Signs: Vital Signs Date Time Temp Pulse Resp B/P (MAP) Pulse Ox O2 Delivery O2 Flow Rate FiO2 09/07/17 10:58 95 Room Air 09/07/17 07:00 98.0 63 18 122/47 (72) 98.0 Labs: Laboratory Tests Test 09/07/17 08:15 Hemoglobin 10.1 g/dL Hematocrit 31.7 % Mean Corpuscular Hemoglobin Concent 32 g/dL Prothrombin Time 18.7 SEC Prothromb Time International Ratio 1.7 Sodium Level 134 mmol/L Potassium Level 3.8 mmol/L Chloride Level 97 mmol/L Carbon Dioxide Level 28 mmol/L Anion Gap 9 Blood Urea Nitrogen 47 mg/dL Creatinine 9.6 mg/dL Estimated GFR (Cockcroft-Gault) 4.8 Glucose Level 91 mg/dL Calcium Level 8.5 mg/dL Phosphorus Level 3.6 mg/dL Albumin 2.4 g/dL PE: GEN: NAD LUNGS: CTAB HEART: RRR ABD: non-tender NEURO/PSYCH: A & O 3 A/P: C Diff - on PO Flagyl Bloody diarrhea w/ coagulopathy - improved -on PPI for GERD, normal colon @ [facility] ~2 years ago, Hgb stable ESRD on HD, on Warfarin (held) -- ADAT, look to DC if tolerates. Continue atbx for C Diff. KARL WAGNER Sep 07, 2017 11:22
--- NOTE | 2017-09-07 13:07 | RAD ---
EXAM: Right upper extremity venous Doppler. HISTORY: History of deep venous thrombosis, right chest hemodialysis catheter, concern for thrombosis COMPARISON: None. FINDINGS: Grayscale and Doppler analysis of the right upper extremity deep venous system was performed with graded compression and augmentation. The internal jugular, subclavian, axillary, brachial, basilic, cephalic, radial and ulnar veins were assessed. There is no evidence of deep venous thrombosis. IMPRESSION: 1. No evidence of deep venous thrombosis.
--- NOTE | 2017-09-07 13:46 | PDOC ---
PROGRESS NOTES Chief Complaint Chief Complaint 1. Hematochezia in the back ground of high INR (5) 2. COumadin toxicity 3. Hx of clots in indwelling RT subclavian HD cath 01/2017,since then on warfarin 4, ESRD on HD TTHS 5. Left arm AV fistula site, immature yet, 3 Weeks so far 6. Anemia of CKD 7. HTN, asthma, DM, dyslipidemia - all chronic, stable 8. Obesity BMI 33.3 9. Mild to MOd pCM cdiff + plan: fu with gi, renal cont HD check US right arm, neg DVT hold warfarin, recommend dc when dc home tmr monitor labs tmr, inr tmr plan dc tmr if no bloody stool on flagyl tid History of Present Illness History of Present Illness ROS: no fever, chills, sob or chest pain said last time BM was yesterday and no blood, but nurse said still bloody Hb lower at 10 from 12 + cdiff, no BM x12hs tho Vitals Vitals Vital Signs Date Time Temp Pulse Resp B/P (MAP) Pulse Ox O2 Delivery O2 Flow Rate FiO2 09/07/17 10:58 95 Room Air 09/07/17 07:00 98.0 63 18 122/47 (72) 98.0 Physical Exam General: Alert, Oriented X3, Cooperative, No acute distress Heart: Regular rate, Normal S1, Normal S2 Lungs: Clear Abdomen: Normal bowel sounds, Soft, No tenderness, No hepatosplenomegaly, No masses Extremities: No clubbing, No cyanosis, No edema, Normal pulses, No tenderness/ swelling Skin: No rashes, No breakdown, No significant lesion Labs LABS Laboratory Tests Test 09/07/17 08:15 Hemoglobin 10.1 g/dL (12.0-15.5) Hematocrit 31.7 % (36.0-47.0) Mean Corpuscular Hemoglobin Concent 32 g/dL (31-37) Prothrombin Time 18.7 SEC (11.7-14.0) Prothromb Time International Ratio 1.7 (0.8-1.1) Sodium Level 134 mmol/L (136-145) Potassium Level 3.8 mmol/L (3.5-5.1) Chloride Level 97 mmol/L (98-107) Carbon Dioxide Level 28 mmol/L (21-32) Anion Gap 9 (6-14) Blood Urea Nitrogen 47 mg/dL (7-20) Creatinine 9.6 mg/dL (0.6-1.0) Estimated GFR (Cockcroft-Gault) 4.8 Glucose Level 91 mg/dL (70-99) Calcium Level 8.5 mg/dL (8.5-10.1) Phosphorus Level 3.6 mg/dL (2.6-4.7) Albumin 2.4 g/dL (3.4-5.0) Assessment and Plan Assessmemt and Plan Problems Medical Problems: (1) Bloody diarrhea Status: Acute Problems: Comment Review of Relevant I have reviewed the following items shalini (where applicable) has been applied. Labs Laboratory Tests Test 09/05/17 16:30 09/05/17 16:50 09/05/17 17:30 09/06/17 00:35 Troponin I Quantitative < 0.017 ng/mL (0.000-0.055) < 0.017 ng/mL (0.000-0.055) Stool Occult Blood Positive (NEG) Clostridium difficile Toxin (PCR) Positive (Negative) White Blood Count 19.0 x10^3/uL (4.0-11.0) Red Blood Count 4.45 x10^6/uL (3.50-5.40) Hemoglobin 12.3 g/dL (12.0-15.5) Hematocrit 39.1 % (36.0-47.0) Mean Corpuscular Volume 88 fL (79-100) Mean Corpuscular Hemoglobin 28 pg (25-35) Mean Corpuscular Hemoglobin Concent 32 g/dL (31-37) Red Cell Distribution Width 26.4 % (11.5-14.5) Platelet Count 259 x10^3/uL (140-400) Neutrophils (%) (Auto) 83 % (31-73) Lymphocytes (%) (Auto) 7 % (24-48) Monocytes (%) (Auto) 8 % (0-9) Eosinophils (%) (Auto) 2 % (0-3) Basophils (%) (Auto) 1 % (0-3) Neutrophils # (Auto) 15.8 x10^3uL (1.8-7.7) Lymphocytes # (Auto) 1.3 x10^3/uL (1.0-4.8) Monocytes # (Auto) 1.5 x10^3/uL (0.0-1.1) Eosinophils # (Auto) 0.4 x10^3/uL (0.0-0.7) Basophils # (Auto) 0.1 x10^3/uL (0.0-0.2) Segmented Neutrophils % 72 % (35-66) Band Neutrophils % 6 % (0-9) Lymphocytes % 10 % (24-48) Monocytes % 7 % (0-10) Eosinophils % 4 % (0-5) Basophils % 1 % (0-3) Toxic Granulation Mod Toxic Vacuolation Slight Platelet Estimate Adequate (ADEQUATE) Polychromasia Slight Anisocytosis Mod Prothrombin Time 44.2 SEC (11.7-14.0) Prothromb Time International Ratio 5.1 (0.8-1.1) Activated Partial Thromboplast Time 69 SEC (24-38) Sodium Level 140 mmol/L (136-145) Potassium Level 3.4 mmol/L (3.5-5.1) Chloride Level 98 mmol/L (98-107) Carbon Dioxide Level 30 mmol/L (21-32) Anion Gap 12 (6-14) Blood Urea Nitrogen 35 mg/dL (7-20) Creatinine 6.4 mg/dL (0.6-1.0) Estimated GFR (Cockcroft-Gault) 7.6 Glucose Level 112 mg/dL (70-99) Calcium Level 9.8 mg/dL (8.5-10.1) Total Bilirubin 0.3 mg/dL (0.2-1.0) Direct Bilirubin 0.1 mg/dL (0.0-0.2) Aspartate Amino Transf (AST/SGOT) 29 U/L (15-37) Alanine Aminotransferase (ALT/SGPT) < 6 U/L (14-59) Alkaline Phosphatase 199 U/L (46-116) Creatine Kinase 92 U/L (26-192) Creatine Kinase MB (Mass) 0.7 ng/mL (0.0-3.6) Creatine Kinase MB Relative Index 0.8 % (0-4) Total Protein 7.8 g/dL (6.4-8.2) Albumin 3.3 g/dL (3.4-5.0) Test 09/06/17 07:00 09/07/17 08:15 White Blood Count 15.5 x10^3/uL (4.0-11.0) Red Blood Count 3.84 x10^6/uL (3.50-5.40) Hemoglobin 10.7 g/dL (12.0-15.5) 10.1 g/dL (12.0-15.5) Hematocrit 33.9 % (36.0-47.0) 31.7 % (36.0-47.0) Mean Corpuscular Volume 88 fL (79-100) Mean Corpuscular Hemoglobin 28 pg (25-35) Mean Corpuscular Hemoglobin Concent 32 g/dL (31-37) 32 g/dL (31-37) Red Cell Distribution Width 26.7 % (11.5-14.5) Platelet Count 271 x10^3/uL (140-400) Neutrophils (%) (Auto) 76 % (31-73) Lymphocytes (%) (Auto) 13 % (24-48) Monocytes (%) (Auto) 7 % (0-9) Eosinophils (%) (Auto) 4 % (0-3) Basophils (%) (Auto) 1 % (0-3) Neutrophils # (Auto) 11.8 x10^3uL (1.8-7.7) Lymphocytes # (Auto) 2.0 x10^3/uL (1.0-4.8) Monocytes # (Auto) 1.0 x10^3/uL (0.0-1.1) Eosinophils # (Auto) 0.5 x10^3/uL (0.0-0.7) Basophils # (Auto) 0.1 x10^3/uL (0.0-0.2) Prothrombin Time 39.7 SEC (11.7-14.0) 18.7 SEC (11.7-14.0) Prothromb Time International Ratio 4.5 (0.8-1.1) 1.7 (0.8-1.1) Sodium Level 136 mmol/L (136-145) 134 mmol/L (136-145) Potassium Level 4.2 mmol/L (3.5-5.1) 3.8 mmol/L (3.5-5.1) Chloride Level 98 mmol/L (98-107) 97 mmol/L (98-107) Carbon Dioxide Level 26 mmol/L (21-32) 28 mmol/L (21-32) Anion Gap 12 (6-14) 9 (6-14) Blood Urea Nitrogen 38 mg/dL (7-20) 47 mg/dL (7-20) Creatinine 7.0 mg/dL (0.6-1.0) 9.6 mg/dL (0.6-1.0) Estimated GFR (Cockcroft-Gault) 6.9 4.8 Glucose Level 117 mg/dL (70-99) 91 mg/dL (70-99) Calcium Level 9.2 mg/dL (8.5-10.1) 8.5 mg/dL (8.5-10.1) Troponin I Quantitative 0.019 ng/mL (0.000-0.055) Phosphorus Level 3.6 mg/dL (2.6-4.7) Albumin 2.4 g/dL (3.4-5.0) Laboratory Tests Test 09/07/17 08:15 Hemoglobin 10.1 g/dL (12.0-15.5) Hematocrit 31.7 % (36.0-47.0) Mean Corpuscular Hemoglobin Concent 32 g/dL (31-37) Prothrombin Time 18.7 SEC (11.7-14.0) Prothromb Time International Ratio 1.7 (0.8-1.1) Sodium Level 134 mmol/L (136-145) Potassium Level 3.8 mmol/L (3.5-5.1) Chloride Level 97 mmol/L (98-107) Carbon Dioxide Level 28 mmol/L (21-32) Anion Gap 9 (6-14) Blood Urea Nitrogen 47 mg/dL (7-20) Creatinine 9.6 mg/dL (0.6-1.0) Estimated GFR (Cockcroft-Gault) 4.8 Glucose Level 91 mg/dL (70-99) Calcium Level 8.5 mg/dL (8.5-10.1) Phosphorus Level 3.6 mg/dL (2.6-4.7) Albumin 2.4 g/dL (3.4-5.0) Medications Current Medications Ondansetron HCl (Zofran) 4 mg PRN Q8HRS PRN IV NAUSEA/VOMITING; Start at 18:45; Stop 09/06/17 at 18:44; Status DC Phytonadione (Vitamin K Ampule) 5 mg 1X ONCE SQ Last administered on 19:50; Start 09/05/17 at 19:45; Stop 09/05/17 at 19:46; Status DC Acetaminophen/ Codeine Phosphate (Tylenol #3) 1 tab PRN Q8HRS PRN PO PAIN; Start 09/05/17 at 19:15 Amlodipine Besylate (Norvasc) 10 mg DAILY PO ; Start 09/06/17 at 09:00; Stop 09/06/17 at 09:41; Status DC Atenolol (Tenormin) 50 mg DAILY PO ; Start 09/06/17 at 09:00; Stop 09/06/17 at 09:41; Status DC Atorvastatin Calcium (Lipitor) 40 mg QHS PO Last administered on 09/06/17 22: 07; Start 09/05/17 at 21:00 Calcium Carbonate/ Glycine (Tums) 500 mg BID PO Last administered on 22:07; Start 09/05/17 at 21:00 Vitamin D (Vitamin D3) 2,000 unit DAILY PO Last administered on 09/07/17 08: 01; Start 09/06/17 at 09:00 Clonidine HCl (Catapres Tts-3) 1 patch WEEKLY TD ; Start 09/06/17 at 09:00; Stop 09/06/17 at 09:41; Status DC Darbepoetin Umang (Aranesp) 100 mcg WEEKLYHS SQ ; Start 09/11/17 at 21:00 Diclofenac Sodium (Voltaren) 4 britt QID TP Last administered on 09/07/17 13:26 ; Start 09/05/17 at 21:00 Doxazosin Mesylate (Cardura) 4 mg DAILY PO ; Start 09/06/17 at 09:00; Stop at 09:41; Status DC Ferrous Sulfate (Feosol) 325 mg DAILY PO ; Start 09/06/17 at 09:00 Acetaminophen/ Hydrocodone Bitart (Lortab 5/325) 1 tab PRN Q6HRS PRN PO PAIN; Start 09/05/17 at 19:15 Montelukast Sodium (Singulair) 10 mg DAILY PO ; Start 09/06/17 at 09:00 Polyethylene Glycol (miraLAX PACKET) 17 gm DAILY PO ; Start 09/06/17 at 09:00 Non-Formulary Medication 2 puff PRN Q4-6HRS IH ; Start 09/05/17 at 19:15; Stop 09/05/17 at 19:43; Status DC Cyclobenzaprine HCl (Flexeril) 5 mg TID PO Last administered on 09/05/17 23: 10; Start 09/05/17 at 21:00; Stop 09/06/17 at 09:41; Status DC Pantoprazole Sodium (Protonix) 40 mg DAILYAC PO Last administered on 08:01; Start 09/06/17 at 07:30 Cetirizine HCl (ZyrTEC) 10 mg DAILY PO Last administered on 09/07/17 08:01; Start 09/06/17 at 09:00 Hydralazine HCl (Apresoline) 100 mg TID PO Last administered on 09/05/17 23: 09; Start 09/05/17 at 21:00 Metolazone (Zaroxolyn) 5 mg DAILY PO ; Start 09/06/17 at 09:00 Non-Formulary Medication 2 puff BID IH ; Start 09/05/17 at 21:00; Stop at 21:00; Status DC Nystatin (Mycostatin) 1 britt TID TP ; Start 09/05/17 at 21:00 Non-Formulary Medication 2 mg TID PRN PO MUSCLE SPASMS; Start 09/05/17 at 19: 15; Stop 09/05/17 at 19:38; Status DC Oxybutynin Chloride (Ditropan) 5 mg [id number] PO Last administered on 09/05/17 23:08; Start 09/05/17 at 21:00 Hydralazine HCl (Apresoline Inj) 10 mg PRN Q4HRS PRN IVP ELEVATED BP, SEE COMMENTS; Start 09/05/17 at 19:15 Diphenhydramine HCl (Benadryl) 25 mg PRN QHS PRN PO INSOMNIA; Start 09/05/17 at 19:15 Iohexol (Omnipaque 240 Mg/ml) 30 ml 1X ONCE PO Last administered on 19:30; Start 09/05/17 at 19:30; Stop 09/05/17 at 19:39; Status DC Albuterol Sulfate (Ventolin Neb Soln) 2.5 mg PRN Q4HRS PRN NEB SHORTNESS OF BREATH; Start 09/05/17 at 19:45 Albuterol Sulfate (Ventolin Neb Soln) 2.5 mg RTQID NEB Last administered on 10:57; Start 09/05/17 at 20:00 Budesonide (Pulmicort) 0.5 mg RTBID NEB Last administered on 09/07/17 07:23; Start 09/05/17 at 20:00 Phytonadione (Vitamin K Ampule) 10 mg 1X ONCE SQ Last administered on 10:46; Start 09/06/17 at 10:30; Stop 09/06/17 at 10:31; Status DC Metronidazole (Flagyl) 500 mg Q8HRS PO Last administered on 09/07/17 13:26; Start 09/06/17 at 22:00 Active Scripts Active Aranesp Syringe (Darbepoetin Umang In Polysorbat) 100 Mcg/0.5 Ml Disp.syrin 100 Mcg SQ WEEKLYHS Metolazone 5 Mg Tablet 5 Mg PO DAILY Tenormin (Atenolol) 50 Mg Tablet 50 Mg PO DAILY Reported Calcium Acetate 667 Mg Tablet 2,001 Mg PO TIDWMEALS Tramadol Hcl 50 Mg Tablet 50 Mg PO PRN Q6-8HRS PRN Warfarin Sodium 5 Mg Tablet 5 Mg PO DAILY Verena Allergy (Fexofenadine Hcl) 180 Mg Tablet 180 Mg PO DAILY Vitamin D3 (Cholecalciferol (Vitamin D3)) 1,000 Unit Tablet 2,000 Unit PO DAILY Proair Hfa Inhaler (Albuterol Sulfate) 8.5 Gm Hfa.aer.ad 2 Puff IH PRN Q4-6HRS Dulera 200 Mcg/5 Mcg Inhaler (Mometasone/Formoterol) 13 Gm Hfa.aer.ad 2 Puff IH BID Esomeprazole Capsule (Esomeprazole Strontium) 40 Mg Capsule.dr 40 Mg PO DAILYAC Voltaren (Diclofenac Sodium) 100 Gm Gel..gram. 4 Gm TP QID Lipitor (Atorvastatin Calcium) 40 Mg Tablet 1 Tab PO QHS Hydralazine Hcl 100 Mg Tablet 1 Tab PO TID Vitals/I & O Vital Sign - Last 24 Hours 10/18/17 10/18/17 10/18/17 10/18/17 15:00 15:23 19:00 20:00 Temp 97.9 97.7 97.9 97.7 Pulse 70 66 Resp 18 18 B/P (MAP) 112/46 (68) 158/58 (91) Pulse Ox 95 96 O2 Delivery Room Air Room Air Room Air Room Air 09/06/17 09/06/17 09/06/17 09/06/17 20:45 20:46 22:17 23:00 Temp 98.0 98.0 Pulse 66 Resp 19 B/P (MAP) 103/41 (61) 103/46 (65) Pulse Ox 99 99 92 O2 Delivery Room Air Room Air Room Air 09/07/17 09/07/17 09/07/17 09/07/17 03:15 07:00 07:24 07:45 Temp 98.1 98.0 98.1 98.0 Pulse 64 63 Resp 18 18 B/P (MAP) 93/40 (57) 122/47 (72) Pulse Ox 94 93 95 O2 Delivery Room Air Room Air Room Air Room Air 09/07/17 10:58 Pulse Ox 95 O2 Delivery Room Air BRYANNA MACIAS MD Sep 07, 2017 13:46
[2017-09-07] MEDS ORDERED: IV NORMAL SALINE 1000ML BAG 1,000 ML IV PRN ×2 (16:19)
[2017-09-07] MEDS ORDERED: DIALYSIS PATIENT. MC PRN ×2 (16:30)
[2017-09-07 19:00] VITALS: BP 126/44
[2017-09-07] MEDS: ATORVASTATIN CALCIUM 40 MG TABLET. PO SCH (21:32)
[2017-09-07 23:00] VITALS: BP 100/73
[2017-09-08 03:00] VITALS: BP 113/45
[2017-09-08] MEDS: metOLazone 2.5 MG TABLET PO SCH (05:49)
[2017-09-08] MEDS: metroNIDAZOLE 500 MG TABLET PO SCH (06:00)
[2017-09-08 06:31] LABS: BASO # 0.1 x10^3/uL (0.0-0.2); BASO % 1 % (0-3); EOS % 8 % (0-3); HEMATOCRIT 30.8 % (36.0-47.0); LYMPH # 1.5 x10^3/uL (1.0-4.8); LYMPH % 15 % (24-48); MEAN CORPUSCULAR HEMOGLOBIN 29 pg (25-35); MEAN CORPUSCULAR HGB CONC 32 g/dL (31-37); MEAN CORPUSCULAR VOLUME 89 fL (79-100); MONO % 6 % (0-9); NEUT % 70 % (31-73); PLATELET COUNT 230 x10^3/uL (140-400); RED BLOOD COUNT 3.45 x10^6/uL (3.50-5.40); RED CELL DISTRIBUTION WIDTH 27.6 % (11.5-14.5); WHITE BLOOD COUNT 10.2 x10^3/uL (4.0-11.0)
[2017-09-08 06:38] LABS: INR 1.3 (0.8-1.1); PROTHROMBIN TIME PATIENT 15.8 SEC (11.7-14.0)
[2017-09-08 06:44] LABS: CALCIUM 8.4 mg/dL (8.5-10.1); CREATININE 5.9 mg/dL (0.6-1.0); GFR 8.3; POTASSIUM 3.6 mmol/L (3.5-5.1)
[2017-09-08 07:00] VITALS: BP 100/37
[2017-09-08] MEDS: ALBUTEROL SULFATE 2.5 MG/3 ML NEBU. NEB SCH ×2 (07:23→11:33)
[2017-09-08] MEDS: BUDESONIDE 0.5 MG/2 ML NEBU. NEB SCH (07:23)
[2017-09-08] MEDS: PANTOPRAZOLE 40 MG TABLET.DR. PO SCH (07:48)
[2017-09-08] MEDS ORDERED: LACTOBACILLUS RHAMNOSUS GG 1 CAPSULE. PO SCH (09:00)
[2017-09-08] MEDS: OXYBUTYNIN CHLORIDE 5 MG TABLET PO SCH (09:39)
[2017-09-08] MEDS: FERROUS SULFATE 325 MG TABLET. PO SCH (09:39)
[2017-09-08] MEDS: CETIRIZINE HCL 10 MG TABLET. PO SCH (09:39)
[2017-09-08] MEDS: CHOLECALCIFEROL (VITAMIN D3) 1,000 UNIT TABLET PO SCH (09:39)
[2017-09-08] MEDS: CALCIUM CARBONATE 500 MG TAB.CHEW PO SCH (09:39)
[2017-09-08] MEDS: NYSTATIN 100,000 UNIT/GM TOPICAL CREAM 15GM TUBE. TP SCH (09:39)
[2017-09-08] MEDS: POLYETHYLENE GLYCOL 3350 17 GM PACKET. PO SCH (09:40)
[2017-09-08] MEDS: MONTELUKAST SODIUM 10 MG TABLET. PO SCH (09:40)
[2017-09-08] MEDS: DICLOFENAC SODIUM 1% TOPICAL GEL 100GM TUBE. TP SCH (09:40)
[2017-09-08] MEDS ORDERED: FERR325T72 PO (10:51)
[2017-09-08] MEDS ORDERED: METR500T PO (10:51)
[2017-09-08 11:00] VITALS: BP 152/64
--- NOTE | 2017-09-08 12:22 | PDOC3 ---
Discharge Summary [facility] Date of Admission: Sep 05, 2017 Discharge Date: Sep 08, 2017 Admitting Diagnosis 1. Hematochezia in the back ground of high INR (5) 2. COumadin toxicity 3. Hx of clots in indwelling RT subclavian HD cath 01/2017,since then on warfarin 4, ESRD on HD TTHS 5. Left arm AV fistula site, immature yet, 3 Weeks so far 6. Anemia of CKD 7. HTN, asthma, DM, dyslipidemia - all chronic, stable 8. Obesity BMI 33.3 9. 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 Umanzor is a 77 old F, on warfarin since 01/2017 for HD cath related DVT till now, came for bloody stool, resolved after 2nd day of admission. INR was found 5. Hb slightly dropped to [address] showed some diverticulosis. INR back to 1.3 post holding warfarin and vitK. US repeated no DVT. she was also found + cdiff, and flagyl started, no diarrhea. cont flagyl xanother 10ds. dc home , recommend no warfarin. dc time 35min. General: Alert, Oriented X3, Cooperative, No acute distress Heart: Regular rate, Normal S1, Normal S2 Lungs: Clear Abdomen: Normal bowel sounds, Soft, No tenderness, No hepatosplenomegaly, No masses Extremities: No clubbing, No cyanosis, No edema, Normal pulses, No tenderness/ swelling Skin: No rashes, No breakdown, No significant lesion Patient History: FH: cancer paternal aunt Family history: Cardiovascular disease (situation) Family history: Hypertension (situation) Unknown Problems: Disposition home CONDITION AT DISCHARGE: Improved Diet renal Scheduled Albuterol Sulfate (Proair Hfa Inhaler), 2 PUFF IH PRN Q4-6HRS, (Reported) Atenolol (Tenormin), 50 MG PO DAILY Atorvastatin Calcium (Lipitor), 1 TAB PO QHS, (Reported) Calcium Acetate (Calcium Acetate), 2,001 MG PO TIDWMEALS, (Reported) Cholecalciferol (Vitamin D3) (Vitamin D3), 2,000 UNIT PO DAILY, (Reported) Darbepoetin Umang In Polysorbat (Aranesp Syringe), 100 MCG SQ WEEKLYHS Diclofenac Sodium (Voltaren), 4 GM TP QID, (Reported) Esomeprazole Strontium (Esomeprazole Capsule), 40 MG PO DAILYAC, (Reported) Ferrous Sulfate (Feosol), 325 MG PO DAILY Fexofenadine Hcl (Verena Allergy), 180 MG PO DAILY, (Reported) Metolazone (Metolazone), 5 MG PO DAILY Metronidazole (Flagyl), 500 MG PO Q8HRS Mometasone/Formoterol (Dulera 200 Mcg/5 Mcg Inhaler), 2 PUFF IH BID, (Reported) Scheduled PRN Tramadol Hcl (Tramadol Hcl), 50 MG PO PRN Q6-8HRS PRN for PAIN, (Reported) Discontinued Medications Hydralazine Hcl (Hydralazine Hcl), 1 TAB PO TID, (Reported) Warfarin Sodium (Warfarin Sodium), 5 MG PO DAILY, (Reported) Follow Up pcp next week BRYANNA MACIAS MD Sep 08, 2017 12:22
--- NOTE | 2017-09-08 13:24 | PDOC ---
Subjective: Subjective: No diarrhea or bleeding. Feels better. Dressed to leave. Objective: Vital Signs: Vital Signs Date Time Temp Pulse Resp B/P (MAP) Pulse Ox O2 Delivery O2 Flow Rate FiO2 09/08/17 11:34 96 Room Air 09/08/17 11:00 97.9 72 19 152/64 (93) 97.9 Labs: Laboratory Tests Test 09/08/17 05:28 White Blood Count 10.2 x10^3/uL Red Blood Count 3.45 x10^6/uL Hemoglobin 10.0 g/dL Hematocrit 30.8 % Mean Corpuscular Volume 89 fL Mean Corpuscular Hemoglobin 29 pg Mean Corpuscular Hemoglobin Concent 32 g/dL Red Cell Distribution Width 27.6 % Platelet Count 230 x10^3/uL Neutrophils (%) (Auto) 70 % Lymphocytes (%) (Auto) 15 % Monocytes (%) (Auto) 6 % Eosinophils (%) (Auto) 8 % Basophils (%) (Auto) 1 % Neutrophils # (Auto) 7.2 x10^3uL Lymphocytes # (Auto) 1.5 x10^3/uL Monocytes # (Auto) 0.6 x10^3/uL Eosinophils # (Auto) 0.8 x10^3/uL Basophils # (Auto) 0.1 x10^3/uL Prothrombin Time 15.8 SEC Prothromb Time International Ratio 1.3 Sodium Level 138 mmol/L Potassium Level 3.6 mmol/L Chloride Level 101 mmol/L Carbon Dioxide Level 30 mmol/L Anion Gap 7 Blood Urea Nitrogen 27 mg/dL Creatinine 5.9 mg/dL Estimated GFR (Cockcroft-Gault) 8.3 Glucose Level 102 mg/dL Calcium Level 8.4 mg/dL PE: GEN: NAD LUNGS: CTAB HEART: RRR ABD: NABS, S/ND/NT NEURO/PSYCH: A & O 3 A/P: C Diff - on PO Flagyl Bloody diarrhea w/ coagulopathy - resolved -on PPI for GERD, normal colon @ [facility] ~2 years ago, Hgb stable -ESRD on HD, on Warfarin -- Improved. DC per primary on atbx. KARL WAGNER Sep 08, 2017 13:24
[2017-09-08 17:16] LABS: HEP B SURFACE ABDY Non Reactive (.)
[2017-09-11] MEDS ORDERED: DARBEPOETIN ALFA 100 MCG/0.5 ML DISP.SYRIN. SQ SCH (21:00)
== END 2017-09-08 13:47 | disposition home or self-care (01) | DRG 371 ==
LOC: ER 15:48 → 5 NORTH 18:00
PROVIDERS: ADMIT Internal Medicine; ATTEND Internal Medicine
PROC: 5A1D70Z Performance of Urinary Filtration, Intermittent, Less than 6 Hours Per Day (ICD-10-PCS; principal; 2017-09-07)
DX: A04.72 Enterocolitis due to Clostridium difficile, not specified as recurrent (principal); N18.6 End stage renal disease; E44.0 Moderate protein-calorie malnutrition; D68.9 Coagulation defect, unspecified; I12.0 Hypertensive chronic kidney disease with stage 5 chronic kidney disease or end stage renal disease; E11.22 Type 2 diabetes mellitus with diabetic chronic kidney disease; M48.56XA Collapsed vertebra, not elsewhere classified, lumbar region, initial encounter for fracture; K92.1 Melena; D63.1 Anemia in chronic kidney disease; E66.9 Obesity, unspecified; Z68.35 Body mass index [BMI] 35.0-35.9, adult; E78.5 Hyperlipidemia, unspecified; J45.909 Unspecified asthma, uncomplicated; M19.90 Unspecified osteoarthritis, unspecified site; K21.9 Gastro-esophageal reflux disease without esophagitis; K42.9 Umbilical hernia without obstruction or gangrene; K63.5 Polyp of colon; T45.515A Adverse effect of anticoagulants, initial encounter; Y92.89 Other specified places as the place of occurrence of the external cause; Z82.49 Family history of ischemic heart disease and other diseases of the circulatory system; Z90.710 Acquired absence of both cervix and uterus; Z99.2 Dependence on renal dialysis; Z88.8 Allergy status to other drugs, medicaments and biological substances
CPT/HCPCS: 36415; 74176; 80048; 80069; 80076; 82274; 82553; 84484; 85007; 85014; 85018; 85025; 85610; 85730; 86706; 86850; 86900; 86901; 87324; 87340; 87341; 93005; 93971; 94250; 94640; J3430; J7613; J7626; Q9966; 99285-25

== ENCOUNTER 2018-03-02 11:21 | Emergency (ER) | payer MEDICARE, MEDICAID ==
[2018-03-02 13:36] LABS: ADD MAN DIFF? NO
[2018-03-02 13:45] LABS: BASO # 0.1 x10^3/uL (0.0-0.2); BASO % 1 % (0-3); EOS # 0.3 x10^3/uL (0.0-0.7); EOS % 4 % (0-3); HEMATOCRIT 39.7 % (36.0-47.0); HEMOGLOBIN 12.8 g/dL (12.0-15.5); LYMPH # 1.8 x10^3/uL (1.0-4.8); LYMPH % 22 % (24-48); MEAN CORPUSCULAR HEMOGLOBIN 32 pg (25-35); MEAN CORPUSCULAR HGB CONC 32 g/dL (31-37); MEAN CORPUSCULAR VOLUME 100 fL (79-100); MONO # 0.5 x10^3/uL (0.0-1.1); MONO % 7 % (0-9); NEUT # 5.4 x10^3uL (1.8-7.7); NEUT % 67 % (31-73); PLATELET COUNT 388 x10^3/uL (140-400); RED BLOOD COUNT 3.99 x10^6/uL (3.50-5.40); RED CELL DISTRIBUTION WIDTH 16.4 % (11.5-14.5); WHITE BLOOD COUNT 8.1 x10^3/uL (4.0-11.0)
[2018-03-02 13:51] LABS: INR 2.3 (0.8-1.1); PROTHROMBIN TIME PATIENT 24.9 SEC (11.7-14.0)
[2018-03-02 13:57] LABS: TROPONINI < 0.017 ng/mL (0.000-0.055)
[2018-03-02 14:07] LABS: THYROID STIM HORMONE (TSH) 1.132 uIU/mL (0.358-3.74)
[2018-03-02 14:10] LABS: ANION GAP 3 (6-14); BLOOD UREA NITROGEN 29 mg/dL (7-20); CALCIUM 10.4 mg/dL (8.5-10.1); CARBON DIOXIDE 38 mmol/L (21-32); CHLORIDE 101 mmol/L (98-107); CREATININE 6.2 mg/dL (0.6-1.0); GFR 7.9; GLUCOSE 90 mg/dL (70-99); POTASSIUM 4.9 mmol/L (3.5-5.1); SODIUM 142 mmol/L (136-145)
[2018-03-02 14:12] LABS: ALBUMIN 3.2 g/dL (3.4-5.0); ALK PHOS 170 U/L (46-116); ALT (SGPT) 19 U/L (14-59); AST (SGOT) 27 U/L (15-37); DIRECT BILIRUBIN 0.1 mg/dL (0.0-0.2); LIPASE 107 U/L (73-393); MAGNESIUM 2.1 mg/dL (1.8-2.4); TOTAL BILIRUBIN 0.5 mg/dL (0.2-1.0); TOTAL PROTEIN 7.2 g/dL (6.4-8.2)
[2018-03-02 14:13] LABS: NT-PRO BNP 4423 pg/mL (0-449)
[2018-03-02 14:13] LABS: CKMB MASS 0.5 ng/mL (0.0-3.6); CREATINE KINASE 43 U/L (26-192)
[2018-03-02 16:11] LABS: BILIRUBIN,URINE SMALL (NEG); CLARITY,URINE HAZY; COLOR,URINE YELLOW; GLUCOSE,URINE NEGATIVE (NEG)
[2018-03-02 16:12] LABS: AMORPHOUS SEDIMENT,UR PRESENT /HPF; BACTERIA,URINE 0 /HPF (0-FEW); NITRITE,URINE NEGATIVE (NEG); PROTEIN,URINE >=300 mg/dL (NEG-TRACE); RBC,URINE OCC /HPF (0-2); SQUAMOUS EPITHELIAL CELL,UR OCC /LPF; UROBILINOGEN,URINE 0.2 mg/dL (0.2 mg/dL)
[2018-03-02] MEDS: AMOXICILLIN/K CLAV 500/125MG TABLET. PO (16:52)
== END 2018-03-02 17:20 | disposition home or self-care (01) ==
LOC: ER 11:21
DX: N30.00 Acute cystitis without hematuria (principal); E78.00 Pure hypercholesterolemia, unspecified; I12.9 Hypertensive chronic kidney disease with stage 1 through stage 4 chronic kidney disease, or unspecified chronic kidney disease; N18.9 Chronic kidney disease, unspecified; Z88.6 Allergy status to analgesic agent; Z88.8 Allergy status to other drugs, medicaments and biological substances
CPT/HCPCS: 36415; 51701; 71045; 80048; 80076; 81001; 82553; 83690; 83735; 83880; 84443; 84484; 85025; 85610; 87086; 93005; 99285-25

== ENCOUNTER 2018-08-23 20:31 | Emergency (ER) | payer MEDICARE, MEDICAID ==
[~2018-08-23] VITALS: Ht 162.6 cm; Wt 89.4 kg
[~2018-08-23 20:31] MED LIST changes: +AMOX1TAB58 PO; +CALC667T PO; -FERR-26 PO; +FERR325T14 PO; +FERR325T72 PO; -LOSA100T6 PO; +LOSA100T7 PO; +METR500T PO; +TRAM50TA PO; +WARF-31 PO
--- NOTE | 2018-08-23 21:44 | PHYS DOC ---
Past Medical History Past Medical History: Arthritis, High Cholesterol, Hypertension, Renal Failure Additional Past Medical Histor: KIDNEY DISEASE Past Surgical History: Hysterectomy Additional Past Surgical Histo: r chest dialysis cath Alcohol Use: Occasionally Drug Use: None Adult General Chief Complaint Chief Complaint: HYPERTENSION HPI HPI Patient is a 78 year old female who presents with high blood pressure last 3 days. Patient's blood pressures been running in the 130s to 150s but yesterday at dialysis and ran up into the 190s. Patient receives dialysis Fridays. Patient states she has she did not take any of her medications today because she was not home and laying at her daughter's house all day. Patient has no known drug allergies. Patient's primary care is Dr. Leos. Patient states she did have a headache that was 2-3 days ago. She states she has a slight headache now she rates about 2 or 3 but states that she feels like her eyes are heavy and she rates that heaviness a 9 out of 10. Review of Systems Review of Systems Constitutional: Denies fever or chills [] Eyes: Denies change in visual acuity, redness, or eye pain [] HENT: Denies nasal congestion or sore throat [] Respiratory: Denies cough or shortness of breath [] Cardiovascular: No additional information not addressed in HPI [] GI: Denies abdominal pain, nausea, vomiting, bloody stools or diarrhea [] : Denies dysuria or hematuria [] Musculoskeletal: Denies back pain or joint pain [] Integument: Denies rash or skin lesions [] Neurologic: Headache. focal weakness or sensory changes [] Endocrine: Denies polyuria or polydipsia [] All other systems were reviewed and found to be within normal limits, except as documented in this note. Allergies Allergies Allergies Coded Allergies Type Severity Reaction Last Updated Verified NSAIDS (Non-Steroidal Anti-Inflamma Allergy Intermediate 02/02/17 Yes carvedilol Allergy Intermediate 01/05/15 Yes Physical Exam Physical Exam Constitutional: Well developed, well nourished, no acute distress, non-toxic appearance. [] HENT: Normocephalic, atraumatic, bilateral external ears normal, oropharynx moist, no oral exudates, nose normal. [] Eyes: PERRLA, EOMI, conjunctiva normal, no discharge. [] Neck: Normal range of motion, no tenderness, supple, no stridor. [] Cardiovascular:Heart rate regular rhythm, no murmur [] Lungs & Thorax: Bilateral breath sounds clear to auscultation [] Abdomen: Bowel sounds normal, soft, no tenderness, no masses, no pulsatile masses. [] Skin: Warm, dry, no erythema, no rash. [] Back: No tenderness, no CVA tenderness. [] Extremities: No tenderness, no cyanosis, no clubbing, ROM intact, no edema. [] Neurologic: Alert and oriented X 3, normal motor function, normal sensory function, no focal deficits noted. [] Psychologic: Affect normal, judgement normal, mood normal. [] Current Patient Data Vital Signs Vital Signs Date Time Temp Pulse Resp B/P (MAP) Pulse Ox O2 Delivery O2 Flow Rate FiO2 08/23/18 20:55 72 18 94 08/23/18 20:35 98.4 154/82 (106) Room Air 98.4 Lab Values Laboratory Tests Test 08/23/18 21:43 White Blood Count 6.2 x10^3/uL (4.0-11.0) Red Blood Count 4.00 x10^6/uL (3.50-5.40) Hemoglobin 13.0 g/dL (12.0-15.5) Hematocrit 39.3 % (36.0-47.0) Mean Corpuscular Volume 98 fL (79-100) Mean Corpuscular Hemoglobin 33 pg (25-35) Mean Corpuscular Hemoglobin Concent 33 g/dL (31-37) Red Cell Distribution Width 17.7 % (11.5-14.5) H Platelet Count 226 x10^3/uL (140-400) Neutrophils (%) (Auto) 62 % (31-73) Lymphocytes (%) (Auto) 27 % (24-48) Monocytes (%) (Auto) 7 % (0-9) Eosinophils (%) (Auto) 3 % (0-3) Basophils (%) (Auto) 1 % (0-3) Neutrophils # (Auto) 3.8 x10^3uL (1.8-7.7) Lymphocytes # (Auto) 1.7 x10^3/uL (1.0-4.8) Monocytes # (Auto) 0.4 x10^3/uL (0.0-1.1) Eosinophils # (Auto) 0.2 x10^3/uL (0.0-0.7) Basophils # (Auto) 0.0 x10^3/uL (0.0-0.2) Sodium Level 144 mmol/L (136-145) Potassium Level 4.3 mmol/L (3.5-5.1) Chloride Level 102 mmol/L (98-107) Carbon Dioxide Level 38 mmol/L (21-32) H Anion Gap 4 (6-14) L Blood Urea Nitrogen 36 mg/dL (7-20) H Creatinine 6.6 mg/dL (0.6-1.0) H Estimated GFR (Cockcroft-Gault) 7.3 Glucose Level 118 mg/dL (70-99) H Calcium Level 10.2 mg/dL (8.5-10.1) H Troponin I Quantitative < 0.017 ng/mL (0.000-0.055) Laboratory Tests 08/23/18 21:43 Laboratory Tests 08/23/18 21:43 EKG EKG Sinus Rhythm, no STEMI Interpretation Time: [address] Mckeon Radiology/Procedures Radiology/Procedures Chest xray Impressions: No acute findings. See Dr Stephen note. Read by Dr Mckeon. [facility] [address] [place], [place] [id number] IMAGING REPORT Signed PATIENT: MAURA EARLY ACCOUNT: [id number] : 1940 LOCATION: ER AGE: 78 SEX: F EXAM STATUS: REG ER ORD. PHYSICIAN: RONAL DOYLE APRN REASON: HTN PROCEDURE: CHEST PA & LATERAL Chest radiograph 08/23/2018 9:29 PM INDICATION: Hypertension COMPARISON: March 02, 2018 TECHNIQUE: Frontal and lateral views of the chest are provided. FINDINGS: The cardiomediastinal silhouette is borderline enlarged, stable. There are no pleural effusions. There is no pulmonary vascular congestion. There is no pneumothorax. The lungs are clear. Right humeral head appears anteriorly subluxed in relation to the glenohumeral joint. IMPRESSION: No acute cardiopulmonary process. Right humeral head appears anteriorly subluxed in relation of the glenohumeral joint. Correlate with range of motion. Electronically signed by: Glenys Turcios MD (08/23/2018 10:16 PM) [facility] DICTATED and SIGNED BY: GLENYS TURCIOS MD DATE: 08/23/182213 Course & Med Decision Making Course & Med Decision Making Patient is a 78 year old female who presents with high blood pressure last 3 days. Patient's blood pressures been running in the 130s to 150s but yesterday at dialysis and ran up into the 190s. Patient receives dialysis Fridays. Patient states she has she did not take any of her medications today because she was not home and laying at her daughter's house all day. Patient has no known drug allergies. Patient's primary care is Dr. Leos. Patient states she did have a headache that was 2-3 days ago. She states she has a slight headache now she rates about 2 or 3 but states that she feels like her eyes are heavy and she rates that heaviness a 9 out of 10. Patient denies any numbness or tingling, chest pain or shortness of air, nausea or vomiting or diarrhea, dizziness or visual disturbances. Patient denies any weaknesses. Patient is neurologically intact. Alert and Oriented. Patient has no extremity swelling. NIH is negative. Currently patient's vital signs are 72 heart rate, 95% on room air, blood pressure is 154/71. She states that she is not on hypertensive medication and states that she was on them a long time ago but they took her off of it. Pupils are equal and reactive. Upper Lungs are clear bilaterally to auscultation and lower lobes are diminished. Patient's EKG shows sinus rhythm without STEMI and was read by Dr. Mckeon. Chest xray shows no acute findings and was read by Dr Mckeon. Patient has a history of Malignant HTN, Chronic renal failure, chronic anemia, constipation, and arthritis. Patient is discharged home and to follow up with her primary care doctor to resume blood pressure medications. [ER physician attending note: 10:15 PM: I have reviewed the patient's testing and imaging. I personally examined and assessed the patient. She presented to the emergency department with some hypertension. She has a history of ESRD and does not take any antihypertensive medication at this time. Her chest x-ray showed cardiomegaly, with a tortuous aorta without any acute abnormality. What appears to be an anterior shoulder dislocation on the right was noted. However, the patient does have relatively full range of motion in her shoulder without any acute pain. She states that she has been told that she has "spurs" in her shoulder and is in the process of seeing an orthopedic surgeon. She is able to touch her left shoulder with her right arm. I discussed the chest x-ray with the radiologist. He states that occasionally he'll get subluxation, without true dislocation, and clinically on my exam that does not appear to be an anterior shoulder dislocation, there is no emptiness of the glenoid region. Given that the patient has baseline range of motion in her right shoulder I encouraged her to continue follow-up, and dedicated shoulder film cannot be obtained in the emergency department at this time as it does not appear that the patient has an acute shoulder dislocation, although the possibility of a chronic subluxation or dislocation remains present I do not think this needs emergent attention in the emergency department at this time.] Dragon Disclaimer Dragon Disclaimer This electronic medical record was generated, in whole or in part, using a voice recognition dictation system. Departure Departure Impression: Primary Impression: Hypertension Disposition: 01 HOME, SELF-CARE Condition: STABLE Referrals: LENNIE CLAYTON (PCP) Patient Instructions: Hypertension Additional Instructions: Follow up with primary care. Problem Qualifiers Primary Impression: Hypertension Hypertension type: unspecified Qualified Codes: I10 - Essential (primary) hypertension RONAL DOYLE APRN Aug 23, 2018 21:44 MELVIN MCKEON MD Aug 23, 2018 22:19
[2018-08-23 21:58] LABS: BASO % 1 % (0-3); EOS # 0.2 x10^3/uL (0.0-0.7); EOS % 3 % (0-3); HEMATOCRIT 39.3 % (36.0-47.0); LYMPH # 1.7 x10^3/uL (1.0-4.8); LYMPH % 27 % (24-48); MEAN CORPUSCULAR HEMOGLOBIN 33 pg (25-35); MEAN CORPUSCULAR HGB CONC 33 g/dL (31-37); MEAN CORPUSCULAR VOLUME 98 fL (79-100); MONO # 0.4 x10^3/uL (0.0-1.1); MONO % 7 % (0-9); NEUT # 3.8 x10^3uL (1.8-7.7); NEUT % 62 % (31-73); PLATELET COUNT 226 x10^3/uL (140-400); RED CELL DISTRIBUTION WIDTH 17.7 % (11.5-14.5); WHITE BLOOD COUNT 6.2 x10^3/uL (4.0-11.0)
[2018-08-23 22:03] VITALS: BP 156/69
[2018-08-23 22:05] LABS: CALCIUM 10.2 mg/dL (8.5-10.1); CREATININE 6.6 mg/dL (0.6-1.0); GFR 7.3; POTASSIUM 4.3 mmol/L (3.5-5.1)
--- NOTE | 2018-08-23 22:20 | RAD ---
Chest radiograph 08/23/2018 9:29 PM INDICATION: Hypertension COMPARISON: March 02, 2018 TECHNIQUE: Frontal and lateral views of the chest are provided. FINDINGS: The cardiomediastinal silhouette is borderline enlarged, stable. There are no pleural effusions. There is no pulmonary vascular congestion. There is no pneumothorax. The lungs are clear. Right humeral head appears anteriorly subluxed in relation to the glenohumeral joint. IMPRESSION: No acute cardiopulmonary process. Right humeral head appears anteriorly subluxed in relation of the glenohumeral joint. Correlate with range of motion. Electronically signed by: Camille Sharma MD (08/23/2018 10:16 PM) [facility]
--- NOTE | 2018-08-24 10:21 | EKG ---
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
== END 2018-08-23 23:00 | disposition home or self-care (01) ==
LOC: ER 20:31
DX: I12.9 Hypertensive chronic kidney disease with stage 1 through stage 4 chronic kidney disease, or unspecified chronic kidney disease (principal); N18.9 Chronic kidney disease, unspecified; R51 Headache; E78.00 Pure hypercholesterolemia, unspecified; Z90.710 Acquired absence of both cervix and uterus; Z99.2 Dependence on renal dialysis; Z88.6 Allergy status to analgesic agent; Z88.8 Allergy status to other drugs, medicaments and biological substances
CPT/HCPCS: 36415; 71046; 80048; 84484; 85025; 93005; 99285-25

== ENCOUNTER 2020-05-08 20:39 | Emergency (ER) | payer MEDICARE, MEDICAID ==
[~2020-05-08] VITALS: Ht 162.6 cm; Wt 78.0 kg
[~2020-05-08 20:39] MED LIST changes: +ALBU2.5V14 NEB; +ALBU2.5V8 IH; +ASPI325T8 PO; +AZEL137S3 NS; +AZEL6DRO2 EACHEYE; -CALC667T PO; +CALC667T4 PO; +CARV3.1210 PO; -CARV3.122 PO; +CIPR500T94 PO; -DICL100G18 TP; +DICL100G54 TP; +GABA300C18 PO; +HYDR-3135 PO; +HYDR-3164 PO; -HYDR-971 PO; +LIPITOR80 MG PO; +LOSA100T14 PO; -LOSA100T7 PO; +MAGN24003 PO; +MELA3TAB45 PO; +MONT10TA49 PO; -MONT10TA9 PO; +MORP15TA80 PO; +ONDA4TAB7 PO; -PROAIR HFA8.5 GM IH; +SENN-161 PO; -TIZA2TAB PO; +TIZA2TAB4 PO
[2020-05-08 23:38] LABS: BASO # 0.1 x10^3/uL (0.0-0.2); BASO % 1 % (0-3); EOS # 0.5 x10^3/uL (0.0-0.7); EOS % 6 % (0-3); HEMATOCRIT 32.7 % (36.0-47.0); HEMOGLOBIN 10.8 g/dL (12.0-15.5); LYMPH # 1.4 x10^3/uL (1.0-4.8); LYMPH % 19 % (24-48); MEAN CORPUSCULAR HEMOGLOBIN 32 pg (25-35); MEAN CORPUSCULAR HGB CONC 33 g/dL (31-37); MEAN CORPUSCULAR VOLUME 96 fL (79-100); MONO # 0.5 x10^3/uL (0.0-1.1); MONO % 7 % (0-9); NEUT # 4.9 x10^3/uL (1.8-7.7); NEUT % 67 % (31-73); PLATELET COUNT 229 x10^3/uL (140-400); RED BLOOD COUNT 3.41 x10^6/uL (3.50-5.40); RED CELL DISTRIBUTION WIDTH 18.7 % (11.5-14.5); WHITE BLOOD COUNT 7.3 x10^3/uL (4.0-11.0)
[2020-05-08] MEDS ORDERED: hydrALAZINE 20 MG/ML VIAL. IVP ONE (23:45)
[2020-05-08] MEDS ORDERED: cloNIDine HCL 0.1 MG TABLET PO ONE (23:45)
[2020-05-08 23:47] LABS: CALCIUM 8.9 mg/dL (8.5-10.1); POTASSIUM 3.8 mmol/L (3.5-5.1)
[2020-05-08 23:53] LABS: ALBUMIN/GLOBULIN RATIO 0.8 (1.0-1.7); MAGNESIUM 1.9 mg/dL (1.8-2.4); TOTAL BILIRUBIN 0.4 mg/dL (0.2-1.0)
--- NOTE | 2020-05-09 00:16 | RAD ---
CT scan of the head without contrast 05/08/2020 Clinical History: Headache. Hypertension Technique: Unenhanced, contiguous, 5 mm axial sections were obtained through the head. One or more of the following individualized dose reduction techniques were utilized for this study: 1. Automated exposure control. 2. Adjustment of the mA and/or kV according to patient size. 3. Use of iterative reconstruction technique. Findings: Comparison study is dated 11/22/2018. There is generalized parenchymal atrophy. Areas of decreased attenuation are seen within the periventricular and subcortical white matter of both cerebral hemispheres consistent with areas of small vessel ischemic disease. No acute parenchymal abnormality is seen. No extra-axial fluid collection is noted. No skull fracture is seen. Impression: No acute intracranial abnormality is seen. Electronically signed by: Dale Mckeon MD (05/09/2020 12:13 AM) [id number]
--- NOTE | 2020-05-09 00:51 | PHYS DOC ---
Past Medical History Past Medical History: Arthritis, Asthma, DVT, GERD, High Cholesterol, Hypertension, Renal Failure, UTI, Other Additional Past Medical Histor: KIDNEY DISEASE,ESRD,BACK PAIN Past Surgical History: Hysterectomy, Other Additional Past Surgical Histo: r chest dialysis cath,R KNEE,FISTULA L UPPER ARM Smoking Status: Never Smoker Alcohol Use: Occasionally Drug Use: None General Adult EDM: Chief Complaint: HYPERTENSION HPI: HPI: Patient is a 80 year old [f__sex] who presents with [] Review of Systems: Review of Systems: Constitutional: Denies fever or chills. [] Eyes: Denies change in visual acuity. [] HENT: Denies nasal congestion or sore throat. [] Respiratory: Denies cough or shortness of breath. [] Cardiovascular: Denies chest pain or edema. [] GI: Denies abdominal pain, nausea, vomiting, bloody stools or diarrhea. [] : Denies dysuria. [] Musculoskeletal: Denies back pain or joint pain. [] Integument: Denies rash. [] Neurologic: Denies headache, focal weakness or sensory changes. [] Endocrine: Denies polyuria or polydipsia. [] Lymphatic: Denies swollen glands. [] Psychiatric: Denies depression or anxiety. [] Heart Score: Risk Factors: Risk Factors: DM, Current or recent (<one month) smoker, HTN, HLP, family history of CAD, obesity. Risk Scores: Score 0 - 3: 2.5% MACE over next 6 weeks - Discharge Home Score 4 - 6: 20.3% MACE over next 6 weeks - Admit for Clinical Observation Score 7 - 10: 72.7% MACE over next 6 weeks - Early Invasive Strategies Current Medications: Current Medications Medications (Trade) Dose Ordered Sig/Jerson Start Time Stop Time Status Last Admin Dose Admin Clonidine HCl (Catapres) 0.1 mg 1X ONCE 05/08/20 23:45 05/08/20 23:46 DC 05/08/20 23:51 0.1 MG Hydralazine HCl (Apresoline Inj) 10 mg 1X ONCE 05/08/20 23:45 05/08/20 23:46 DC 05/08/20 23:50 10 MG Allergies: Allergies: Allergies Coded Allergies Type Severity Reaction Last Updated Verified NSAIDS (Non-Steroidal Anti-Inflamma Allergy Intermediate 02/02/17 Yes carvedilol Allergy Intermediate 01/05/15 Yes Physical Exam: PE: Constitutional: Well developed, well nourished, no acute distress, non-toxic appearance. [] HENT: Normocephalic, atraumatic, bilateral external ears normal, oropharynx moist, no oral exudates, nose normal. [] Eyes: PERRLA, EOMI, conjunctiva normal, no discharge. [] Neck: Normal range of motion, no tenderness, supple, no stridor. [] Cardiovascular:Heart rate regular rhythm, no murmur [] Lungs & Thorax: Bilateral breath sounds clear to auscultation [] Abdomen: Bowel sounds normal, soft, no tenderness, no masses, no pulsatile masses. [] Skin: Warm, dry, no erythema, no rash. [] Back: No tenderness, no CVA tenderness. [] Extremities: No tenderness, no cyanosis, no clubbing, ROM intact, no edema. [] Neurologic: Alert and oriented X 3, normal motor function, normal sensory function, no focal deficits noted. [] Psychologic: Affect normal, judgement normal, mood normal. [] Current Patient Data: Labs: Laboratory Tests Test 05/08/20 23:34 White Blood Count 7.3 x10^3/uL (4.0-11.0) Red Blood Count 3.41 x10^6/uL (3.50-5.40) L Hemoglobin 10.8 g/dL (12.0-15.5) L Hematocrit 32.7 % (36.0-47.0) L Mean Corpuscular Volume 96 fL (79-100) Mean Corpuscular Hemoglobin 32 pg (25-35) Mean Corpuscular Hemoglobin Concent 33 g/dL (31-37) Red Cell Distribution Width 18.7 % (11.5-14.5) H Platelet Count 229 x10^3/uL (140-400) Neutrophils (%) (Auto) 67 % (31-73) Lymphocytes (%) (Auto) 19 % (24-48) L Monocytes (%) (Auto) 7 % (0-9) Eosinophils (%) (Auto) 6 % (0-3) H Basophils (%) (Auto) 1 % (0-3) Neutrophils # (Auto) 4.9 x10^3/uL (1.8-7.7) Lymphocytes # (Auto) 1.4 x10^3/uL (1.0-4.8) Monocytes # (Auto) 0.5 x10^3/uL (0.0-1.1) Eosinophils # (Auto) 0.5 x10^3/uL (0.0-0.7) Basophils # (Auto) 0.1 x10^3/uL (0.0-0.2) Sodium Level 139 mmol/L (136-145) Potassium Level 3.8 mmol/L (3.5-5.1) Chloride Level 98 mmol/L (98-107) Carbon Dioxide Level 35 mmol/L (21-32) H Anion Gap 6 (6-14) Blood Urea Nitrogen 20 mg/dL (7-20) Creatinine 5.0 mg/dL (0.6-1.0) H Estimated GFR (Cockcroft-Gault) 10.0 BUN/Creatinine Ratio 4 (6-20) L Glucose Level 88 mg/dL (70-99) Calcium Level 8.9 mg/dL (8.5-10.1) Magnesium Level 1.9 mg/dL (1.8-2.4) Total Bilirubin 0.4 mg/dL (0.2-1.0) Aspartate Amino Transferase (AST) 24 U/L (15-37) Alanine Aminotransferase (ALT) 9 U/L (14-59) L Alkaline Phosphatase 125 U/L (46-116) H Creatine Kinase 138 U/L (26-192) Creatine Kinase MB (Mass) 0.9 ng/mL (0.0-3.6) Creatine Kinase MB Relative Index 0.7 % (0-4) Troponin I Quantitative 0.058 ng/mL (0.000-0.055) Total Protein 7.0 g/dL (6.4-8.2) Albumin 3.0 g/dL (3.4-5.0) L Albumin/Globulin Ratio 0.8 (1.0-1.7) L Laboratory Tests 05/08/20 23:34 Laboratory Tests 05/08/20 23:34 Vital Signs: Vital Signs Date Time Temp Pulse Resp B/P (MAP) Pulse Ox O2 Delivery O2 Flow Rate FiO2 05/08/20 23:51 216/84 05/08/20 20:59 98.3 68 18 89 Room Air 98.3 EKG: EKG: @2303 NSR at 70bpm, NO ST elevation, QRS 104ms, QT/QTc 496/539ms, t wave inversion V2-V3 Radiology/Procedures: Radiology/Procedures: [] Course & Med Decision Making: Course & Med Decision Making Pertinent Labs and Imaging studies reviewed. (See chart for details) [] Dragon Disclaimer: Dragon Disclaimer: This electronic medical record was generated, in whole or in part, using a voice recognition dictation system. Departure Departure Impression: Primary Impression: Hypertensive urgency Disposition: HOME, SELF-CARE Condition: STABLE Referrals: LENNIE CLAYTON (PCP) ZORA THOMAS MD Patient Instructions: Hypertension, Ngox-no-Arwy Scripts Clonidine Hcl (CLONIDINE HCL) 0.1 Mg Tablet 0.1 MG PO BID PRN for ELEVATED BP, SEE COMMENTS, #14 TAB Take this prescription as needed for systolic blood pressure (upper number) greater than 180 and/or diastolic blood pressure (lower number) greater than 95 Prov: SELINA FLEMING DO 05/09/20 Justicifation of Admission Dx: Justifications for Admission: Justification of Admission Dx: N/A SELINA FLEMING DO May 09, 2020 00:51
[2020-05-09 01:49] VITALS: BP 149/63
[2020-05-09] MEDS ORDERED: CLON0.1T PO (01:50)
--- NOTE | 2020-05-09 12:45 | EKG ---
[facility] [address] [place] [address] Test Date: 2020-05-08 Test Time: 23:03:27 Pat Name: MAURA EARLY Department: Room: Gender: F Pole Tester: [id number] : 1940 Requested By: SELINA FLEMING Order Number: [id number] Reading MD: Measurements Intervals [place] Rate: 70 P: -41 CT: 122 QRS: 0 QRSD: 104 T: 146 QT: 496 QTc: 539 Interpretive Statements SINUS RHYTHM ATRIAL PREMATURE COMPLEX(ES) LEFT ATRIAL ABNORMALITY LEFTWARD AXIS T ABNORMALITY IN ANTEROSEPTAL LEADS HIGH LATERAL LEADS PROLONGED QT ABNORMAL ECG RI6.02 No previous ECG available for comparison
== END 2020-05-09 01:57 | disposition home or self-care (01) ==
LOC: ER 20:39
DX: R16.0 Hepatomegaly, not elsewhere classified (principal); I10 Essential (primary) hypertension; M19.90 Unspecified osteoarthritis, unspecified site; J45.909 Unspecified asthma, uncomplicated; K21.9 Gastro-esophageal reflux disease without esophagitis; E78.00 Pure hypercholesterolemia, unspecified; N18.6 End stage renal disease; Z86.718 Personal history of other venous thrombosis and embolism; Z90.710 Acquired absence of both cervix and uterus; Z98.890 Other specified postprocedural states; Z88.8 Allergy status to other drugs, medicaments and biological substances; Z79.899 Other long term (current) drug therapy
CPT/HCPCS: 36415; 70450; 80053; 82553; 83735; 84484; 85025; 93005; 96374; 99285; J0360

== ENCOUNTER 2020-05-31 15:02 | Emergency (ER) | payer MEDICARE, MEDICAID ==
[~2020-05-31] VITALS: Ht 160 cm; Wt 81.8 kg
[~2020-05-31 15:02] MED LIST changes: +CLON0.1T PO
[2020-05-31] MEDS ORDERED: CLON0.1T PO (16:08)
--- NOTE | 2020-05-31 16:08 | PHYS DOC ---
Past Medical History Past Medical History: Arthritis, Asthma, DVT, GERD, High Cholesterol, Hyp ertension, Renal Failure, UTI, Other Additional Past Medical Histor: KIDNEY DISEASE,ESRD,BACK PAIN Past Surgical History: Hysterectomy, Other Additional Past Surgical Histo: r chest dialysis cath,R KNEE,FISTULA L UPPER ARM Smoking Status: Never Smoker Alcohol Use: Occasionally Drug Use: None General Adult EDM: Chief Complaint: HYPERTENSION HPI: HPI: Patient is a 80 year old [f__sex] who presents with [] Review of Systems: Review of Systems: Constitutional: Denies fever or chills. [] Eyes: Denies change in visual acuity. [] HENT: Denies nasal congestion or sore throat. [] Respiratory: Denies cough or shortness of breath. [] Cardiovascular: Denies chest pain or edema. [] GI: Denies abdominal pain, nausea, vomiting, bloody stools or diarrhea. [] : Denies dysuria. [] Musculoskeletal: Denies back pain or joint pain. [] Integument: Denies rash. [] Neurologic: Denies headache, focal weakness or sensory changes. [] Endocrine: Denies polyuria or polydipsia. [] Lymphatic: Denies swollen glands. [] Psychiatric: Denies depression or anxiety. [] Heart Score: Risk Factors: Risk Factors: DM, Current or recent (<one month) smoker, HTN, HLP, family history of CAD, obesity. Risk Scores: Score 0 - 3: 2.5% MACE over next 6 weeks - Discharge Home Score 4 - 6: 20.3% MACE over next 6 weeks - Admit for Clinical Observation Score 7 - 10: 72.7% MACE over next 6 weeks - Early Invasive Strategies Allergies: Allergies: Allergies Coded Allergies Type Severity Reaction Last Updated Verified NSAIDS (Non-Steroidal Anti-Inflamma Allergy Intermediate 02/02/17 Yes carvedilol Allergy Intermediate 01/05/15 Yes Physical Exam: PE: Constitutional: Well developed, well nourished, no acute distress, non-toxic appearance. [] HENT: Normocephalic, atraumatic, bilateral external ears normal, oropharynx moist, no oral exudates, nose normal. [] Eyes: PERRLA, EOMI, conjunctiva normal, no discharge. [] Neck: Normal range of motion, no tenderness, supple, no stridor. [] Cardiovascular:Heart rate regular rhythm, no murmur [] Lungs & Thorax: Bilateral breath sounds clear to auscultation [] Abdomen: Bowel sounds normal, soft, no tenderness, no masses, no pulsatile masses. [] Skin: Warm, dry, no erythema, no rash. [] Back: No tenderness, no CVA tenderness. [] Extremities: No tenderness, no cyanosis, no clubbing, ROM intact, no edema. [] Neurologic: Alert and oriented X 3, normal motor function, normal sensory function, no focal deficits noted. [] Psychologic: Affect normal, judgement normal, mood normal. [] Current Patient Data: Vital Signs: Vital Signs Date Time Temp Pulse Resp B/P (MAP) Pulse Ox O2 Delivery O2 Flow Rate FiO2 05/31/20 15:46 97.9 75 18 199/88 (125) 92 Room Air 97.9 EKG: EKG: @1825 NSR at 66bpm, NO ST elevation, QRS 102ms, QT/QTc 460/484ms Radiology/Procedures: Radiology/Procedures: [] Course & Med Decision Making: Course & Med Decision Making Pertinent Labs and Imaging studies reviewed. (See chart for details) [] Dragon Disclaimer: [place] Disclaimer: This electronic medical record was generated, in whole or in part, using a voice recognition dictation system. Departure Departure Impression: Primary Impression: Hypertension Qualified Codes: I10 - Essential (primary) hypertension Disposition: 01 HOME, SELF-CARE Condition: STABLE Referrals: LENNIE CLAYTON (PCP) Patient Instructions: Hypertension, [id number] Scripts Clonidine Hcl (CLONIDINE HCL) 0.1 Mg Tablet 0.1 MG PO BID PRN for ELEVATED BP, SEE COMMENTS, #20 TAB Take as needed for elevated systolic (upper) blood pressure > 200 and/or diastolic (lower) blood pressure > 110 Prov: SELINA FLEMING DO 05/31/20 Justicifation of Admission Dx: Justifications for Admission: Justification of Admission Dx: N/A SELINA FLEMING DO May 31, 2020 16:08
[2020-05-31] MEDS ORDERED: cloNIDine HCL 0.1 MG TABLET PO ONE (16:15)
[2020-05-31] MEDS ORDERED: hydrALAZINE 20 MG/ML VIAL. IVP ONE (17:00)
[2020-05-31 17:30] VITALS: BP 166/75
--- NOTE | 2020-05-31 18:13 | RAD ---
Chest AP portable 05/31/2020. Reason for exam: Shortness of air. Comparison is made with a study of 11/22/2018. A right subclavian line present on the prior study has been removed. No new infiltrate or effusion is seen. The cardiac contour is enlarged and has increased from the prior exam. Pulmonary vascularity is not grossly congested. Arthritic changes are again seen at the shoulders. IMPRESSION: Increased size of cardiac shadow. This could be from cardiac enlargement or pericardial effusion. Electronically signed by: Vince Cotto Jr., MD (05/31/2020 6:10 PM) [facility]
--- NOTE | 2020-06-02 07:55 | EKG ---
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
== END 2020-05-31 19:00 | disposition home or self-care (01) ==
LOC: ER 15:02
DX: I10 Essential (primary) hypertension (principal); R42 Dizziness and giddiness; M19.90 Unspecified osteoarthritis, unspecified site; J45.909 Unspecified asthma, uncomplicated; K21.9 Gastro-esophageal reflux disease without esophagitis; E78.00 Pure hypercholesterolemia, unspecified; N18.9 Chronic kidney disease, unspecified; Z86.718 Personal history of other venous thrombosis and embolism; Z90.710 Acquired absence of both cervix and uterus; Z98.890 Other specified postprocedural states; Z88.8 Allergy status to other drugs, medicaments and biological substances
CPT/HCPCS: 71045; 93005; 99285